=== PATIENT | male | born 1950 | race Caucasian/White ===

== ENCOUNTER 2018-12-04 23:11 | Inpatient (IN) | payer MEDICAID, OTHER ==
[~2018-12-04] VITALS: Ht 170.2 cm; Wt 88.6 kg
[2018-12-04] MEDS ORDERED: NITROGLYCERIN 50 MG/D5W (PMX) 250 ML ONE (23:15)
[2018-12-04] MEDS ORDERED: ETOMIDATE 20 MG INJ ONE (23:30)
[2018-12-04] MEDS ORDERED: AMIODARONE DRIP IV SCH ×2 (23:45)
[2018-12-04] MEDS ORDERED: SODIUM CHLORIDE 0.9% 500 ML BAG IV* STA (23:45)
[2018-12-04] MEDS ORDERED: PROPOFOL 100 ML IV STA (23:45)
[2018-12-04] MEDS ORDERED: FENTAnyl 50 MCG/ML VIAL IV STA (23:45)
[2018-12-04] MEDS ORDERED: EPINEPHRINE 4 MG in NS 250 ML IV SCH (23:45)
[2018-12-04] MEDS ORDERED: VANCOMYCIN 1 GM (PMX) 250 ML IVPB STA (23:51)
[2018-12-04] MEDS ORDERED: CEFEPIME 2GM/50 ML (PMX) 50 ML IVPB STA (23:51)
[2018-12-04] MEDS ORDERED: NORepinephrine 8MG/250 ML (PMX 250 ML IV STA (23:53)
[2018-12-05] VITALS (31 sets, daily range): BP systolic 79–181; BP diastolic 62–127; PULSE 57–91; RESP 15–30; Ht 170.2 cm; Wt 88.6 kg
[2018-12-05] MEDS ORDERED: INSULIN HUMAN REGULAR 100 UNIT in SOD CHLORIDE 0.9% 99 ML IV SCH ×2
[2018-12-05] MEDS ORDERED: DEXTROSE 50% 50 ML SYRINGE IV PRN ×2
[2018-12-05] MEDS ORDERED: FUROSEMIDE 40 MG INJ IV ONE (00:30)
[2018-12-05] MEDS ORDERED: FENTAnyl (DRIP) 1000 mcg/100mL 100 ML IV SCH (01:00)
[2018-12-05] MEDS: ACCU-CHEK XX SCH ×5 (01:00→04:00)
--- NOTE | 2018-12-05 01:48 | ERD ---
ER Documentation Chief Complaint Chief Complaint bib ra severe distress; 86% sats on Cpap; CP unk time; bilat rales HPI This is a 62-year-old male, who is brought in severe respiratory distress, history was limited secondary to severe acuity of his symptoms. Patient was found outside in the parking lot, complaining of shortness of breath, he was found to be hypoxic, rales were noted in the field, he was given sublingual nitrogen x4, he presented altered, and obtunded. ROS All systems reviewed and are negative except as per history of present illness. Allergies Allergies: Coded Allergies: No Known Allergies (Verified Allergy, Unknown, 12/04/18) Physical Exam Vitals Vital Signs Date Temp Pulse Resp B/P (MAP) Pulse Ox O2 O2 Flow FiO2 Time Delivery Rate 12/05/18 75 20 100 50 01:28 12/05/18 91 18 162/108 100 Mechanical 00:43 (126) Ventilator 12/05/18 118 20 79 100 00:06 12/04/18 97.5 64 37 205/115 23:11 (145) Physical Exam Const: Acutely ill, opens eyes spontaneously, but is unresponsive to voice, appears to be in tripod position, diaphoretic Head: Atraumatic Eyes: Normal Conjunctiva ENT: Normal External Ears, Nose and Mouth. Neck: Full range of motion. No meningismus. Resp: Rales are noted bilaterally Cardio: Tachycardic, no murmur Abd: Soft, non tender, non distended. Normal bowel sounds Skin: No petechiae or rashes Back: No midline or flank tenderness Ext: No cyanosis, or edema Neur: Somnolent Psych: Unable to assess Result Diagram: 12/05/18 0001 Results 24 hrs Laboratory Tests Test 12/04/18 23:35 12/05/18 00:01 12/05/18 00:25 Bedside Glucose 140 mg/dL White Blood Count 14.1 10^3/ul Red Blood Count 6.28 10^6/ul Hemoglobin 18.1 g/dl Hematocrit 60.0 % Mean Corpuscular Volume 95.5 fl Mean Corpuscular Hemoglobin 28.8 pg Mean Corpuscular Hemoglobin Concent 30.2 g/dl Red Cell Distribution Width 14.9 % Platelet Count 172 10^3/UL Mean Platelet Volume 13.8 fl Immature Granulocytes % 0.400 % Neutrophils % % Lymphocytes % % Monocytes % % Eosinophils % % Basophils % % Nucleated Red Blood Cells % 0.0 /100WBC Immature Granulocytes # 0.060 10^3/ul Neutrophils # 10^3/ul Lymphocytes # 10^3/ul Monocytes # 10^3/ul Eosinophils # 10^3/ul Basophils # 10^3/ul Nucleated Red Blood Cells # 10^3/ul Prothrombin Time 12.1 Sec Prothrombin Time Ratio 0.9 INR International Normalized Ratio 0.89 Activated Partial Thromboplast Time 25.5 Sec Ammonia 60 umol/l Free Thyroxine Index Pending Thyroxine (T4) Pending Triiodothyronine (T3) Uptake Pending Salicylates Level < 1.0 mg/dl Acetaminophen Level < 10.0 ug/ml Ethyl Alcohol Level < 10.0 mg/dl Lactic Acid Level 6.8 mmol/L Current Medications Medications Dose Sig/Lennie Start Time Status Last (Trade) Ordered Route PRN Stop Time Admin Dose Reason Admin Epinephrine 250 ml @ TITRATE IV 12/04/18 DC 12/05/18 4 mg/ Sodium 3.75 mls/hr 23:45 12/05/18 00:11 Chloride 01:00 Amiodarone 500 ml @ 0 Q0M IV 12/04/18 12/05/18 HCl 900 mls/hr 23:45 12/05/18 00:00 mg/Dextrose 23:44 Discontinue PROTOCOL 12/05/18 DC Miscellaneous all previ... ONCE XX 00:00 12/05/18 00:01 Information (* Miscellaneous Pharmacy Order) Diagnostic 1 ea Q1H XX 12/05/18 Test (Pha) 00:00 (Accu-Chek) Insulin 100 ml @ 0 PER 12/05/18 Human mls/hr PROTOCOL IV 00:00 Regular 100 unit/ Sodium Chloride Treatment Per 12/05/18 Miscellaneous of protocol XX 00:00 Hypoglycemia: Information 1.BG 51... (* Miscellaneous Pharmacy Order) Dextrose 25 ml Q15M PRN 12/05/18 (D50w IV 00:00 Syringe) .DECREASED GLUCOSE Dextrose 50 ml Q15M PRN 12/05/18 (D50w IV 00:00 Syringe) .DECREASED GLUCOSE Sodium 500 ml ONCE STAT 12/04/18 DC 12/05/18 Chloride IV* 23:45 00:22 (NS) 12/04/18 23:51 Fentanyl 50 mcg ONCE STAT 12/04/18 DC 12/05/18 (Sublimaze) IV 23:45 01:21 12/04/18 23:51 Propofol 100 ml @ ONCE STAT 12/04/18 12/05/18 2.25 mls/hr IV 23:45 01:29 12/18/18 21:04 Cefepime HCl 50 ml @ ONCE STAT 12/04/18 DC 12/05/18 100 mls/hr IVPB 23:51 12/05/18 01:20 00:20 Vancomycin 250 ml @ ONCE STAT 12/04/18 HCl 125 mls/hr IVPB 23:51 12/05/18 01:50 250 ml @ ONCE STAT 12/04/18 Norepinephrin 7.5 mls/hr IV 23:53 12/06/18 e 09:12 Furosemide 40 mg ONCE ONCE 12/05/18 DC 12/05/18 (Lasix) IV 00:30 12/05/18 00:17 00:31 Fentanyl 100 ml @ TITRATE IV 12/05/18 12/05/18 2.5 mls/hr 01:00 01:19 Procedures/MDM This is a 62-year-old male, brought in by EMS, with limited history but my clinical impression initially was that the patient appeared to be in fulminant CHF, appearing severely hypertensive and with signs of volume overload. Nitroglycerin GTT was started immediately, however given that the patient's mental status, had been severely declined on arrival and was not tolerating BiPAP, I made the decision to intubate the patient. Patient subsequently lost pulses, and CPR was initiated per protocol. CPR lasted 11 minutes, and Ross was achieved, subsequently patient was placed on hypothermia protocol, broad- spectrum antibiotics were initiated as well. Patient will be aggressively diuresed, with pressor support as needed. I did speak briefly with interventional cardiology, and cardiology did not feel the patient was a candidate for catheterization. Critical Care Time: 35 minutes Treatments/Evaluations: Close monitoring and treatment of unstable vital signs, cardiorespiratory, and neurologic status, while maintaining tight balance of fluid, respiratory, and cardiac interventions. This time includes discussing the case with the patient and the patient's family. This time does not include all procedures stated elsewhere in this record. This time also includes reviewing old records, labs and radiological studies. This time includes examining and re- examining the patient. Additionally, this time also includes arranging care with admitting and consulting physicians. EKG: Rate/Rhythm: Normal Sinus Rhythm QRS, ST, T-waves: Right bundle branch block. No changes consistent w/ acute ischemia Impression: No evidence of ischemia or arrhythmia Repeat EKG: Rate/Rhythm: Normal Sinus Rhythm QRS, ST, T-waves: Right bundle branch block no changes consistent w/ acute ischemia Impression: No evidence of ischemia or arrhythmia Accepting Care Team: Current data and ongoing care discussed. Primary: Bonnie Consulting: None Outstanding Data: none Departure Diagnosis: Primary Impression: Shortness of breath Additional Impressions: Cardiac arrest Heart failure Heart failure type: unspecified Heart failure chronicity: unspecified Qualified Codes: I50.9 - Heart failure, unspecified NICHOLE HODGE MD Dec 05, 2018 01:47
[2018-12-05] MEDS ORDERED: ONDANSETRON 4 MG INJ IV PRN (02:00)
[2018-12-05] MEDS ORDERED: IPRATROPIUM (HFA) 12.9 GM INHALER INH PRN (02:00)
[2018-12-05] MEDS ORDERED: ACETAMINOPHEN 650 MG SUPP PR PRN (02:00)
[2018-12-05] MEDS ORDERED: ALBUTEROL HFA 8 GM INHALER INH PRN (02:00)
[2018-12-05] MEDS ORDERED: PROPOFOL 100 ML IV SCH (02:00)
[2018-12-05] MEDS: PANTOPRAZOLE 40 MG INJ IV SCH (05:52)
--- NOTE | 2018-12-05 06:44 | HP ---
Date/Time of Note Date/Time of Note DATE: 12/05/18 TIME: 06:35 Assessment/Plan VTE Prophylaxis Pharmacological prophylaxis: heparin Lines/Catheters IV Catheter Type (from Nrsg): Central Line Central line still needed: Yes Urinary Cath still in place: Yes Reason Cath still needed: terminal illness/intractable pain Assessment/Plan Assessment/Plan 62-year-old male with unknown medical history who was found down in the parking lot with severe shortness of breath, brought to ER on a CPAP, intubated in the ER, had cardiac arrest shortly after arrival to ER, status post CPR/ACLS with RO SC, admitted to ICU, patient woke up shortly after admission to ICU and started following simple commands, plan for hypothermia protocol aborted PLAN -Attempt CPAP trial if remains calm -Pulmonary to see in a.m. and decide about extubation -Obtain 2D echo -IV antibiotic -Lasix -Check ABG -Monitor kidney function closely. Obtain renal ultrasound and nephrology consult as needed -Gather more information once extubated Result Diagram: 12/05/18 0445 12/05/18 0445 Results 24hrs Laboratory Tests Test 12/04/18 23:35 12/04/18 23:45 12/04/18 23:59 12/05/18 00:01 Bedside Glucose 140 Blood Gas Blood arterial Specimen Source Arterial Blood 12/05/2018 1:10:35 Date Drawn AM Arterial Blood pH 7.242 *L (Temp corrected) Arterial Blood 56.0 H pCO2 (Temp correct) Arterial Blood 132.6 H pO2 (Temp corrected) Arterial Blood 23.6 HCO3 Arterial Blood -4.9 L Base Excess Arterial Blood 98.2 H Oxygen Saturation Gilberto Test ACCEPTAB Arterial Blood Left Radial Gas Puncture Site Arterial 2.1 Blood Carboxyhemo globin Arterial Blood 0.4 Methemoglobin Blood Gas A-a O2 524.4 H Differential Oxyhemoglobin 95.7 Percent Blood Gas 37.0 Temperature Blood Gas 20.0 Respiration Rate Blood Gas Actual 20 Respiration Rate Blood Gas VENT - AC Modality FiO2 100.0 Blood Gas Tidal 500.0 Volume Blood Gas Low 5.0 PEEP Setting Blood Gas 30.0 Inspiratory Pressure Blood Gas DR. HODGE Critical Value Read Back Blood Gas MR Notified Whom Blood Gas 12/05/2018 1:30:24 Notified Time AM Urine Color LT. YELLOW Urine Clarity CLEAR Urine pH 5.0 Urine Specific 1.020 [place] Urine Ketones NEGATIVE Urine Nitrite NEGATIVE Urine Bilirubin NEGATIVE Urine NEGATIVE Urobilinogen Urine Leukocyte NEGATIVE Esterase Urine Microscopic >50 RBC Urine Microscopic 2-5 WBC Urine Squamous FEW Epithelial Cells Urine Mucus FEW A Urine Hemoglobin 2+ H Urine Glucose 2+ H Urine Total 1+ Protein Urine Opiates Negative Screen Urine Negative Barbiturates Urine Negative Amphetamines Screen Urine Negative Benzodiazepines Screen Urine Cocaine Negative Screen Urine Negative Cannabinoids White Blood Count 14.1 H Red Blood Count 6.28 H Hemoglobin 18.1 H Hematocrit 60.0 H Mean Corpuscular 95.5 Volume Mean Corpuscular 28.8 L Hemoglobin Mean Corpuscular 30.2 L Hemoglobin Concen t Red Cell 14.9 H Distribution Width Platelet Count 172 Mean Platelet 13.8 H Volume Immature 0.400 Granulocytes % Neutrophils % Segmented 38 L Neutrophils % (Manual) Lymphocytes % Lymphocytes % 39 (Manual) Reactive 12 H Lymphocytes % (Manual) Monocytes % Monocytes % 6 (Manual) Eosinophils % Basophils % Basophils % 1 (Manual) Metamyelocytes % 1 H (manual) Myelocytes % 3 H (Manual) Nucleated Red 0.0 Blood Cells % Immature 0.060 H Granulocytes # Neutrophils # Lymphocytes 5.4 H (Manual) Lymphocytes # Reactive 1.6 H Lymphocytes # Monocytes # Monocytes # 0.8 (Manual) Eosinophils # Basophils # Basophils # 0.1 H (Manual) Metamyelocytes # 0.1 H Myelocytes # 0.4 H Nucleated Red Blood Cells # Platelet Estimate NORMAL Giant Platelets 2 H Poikilocytosis 1+ Anisocytosis 1+ Microcytosis 1+ Acanthocytes 1+ Prothrombin Time 12.1 Prothrombin Time 0.9 Ratio INR International 0.89 Normalized Ratio Activated 25.5 Partial Thrombopl ast Time Sodium Level 154 H Potassium Level 4.4 Chloride Level 112 H Carbon Dioxide 22 Level Anion Gap 20 H Blood Urea 23 H Nitrogen Creatinine 1.45 H Est Glomerular 50 L Filtrat Rate mL/min Glucose Level 117 Calcium Level 10.4 H Phosphorus Level 6.8 H Magnesium Level 2.4 Total Bilirubin 0.5 Direct Bilirubin 0.00 Indirect 0.5 Bilirubin Aspartate Amino 29 Transf (AST/SGOT) Alanine 11 L Aminotransferase (ALT/SGPT) Alkaline 120 Phosphatase Ammonia 60 H Troponin I 0.049 Total Protein 9.1 H Albumin 5.0 H Globulin 4.10 H Albumin/Globulin 1.21 Ratio Free Thyroxine 3.28 Index Thyroxine (T4) 10.6 Triiodothyronine 30.9 (T3) Uptake Salicylates Level < 1.0 L Acetaminophen < 10.0 L Level Ethyl Alcohol < 10.0 H Level Test 12/05/18 00:25 12/05/18 02:30 12/05/18 04:40 12/05/18 04:45 Lactic Acid Level 6.8 *H 1.9 Blood Gas Blood arterial Specimen Source Arterial Blood 12/05/2018 2:45:03 Date Drawn AM Arterial Blood pH 7.264 *L (Temp corrected) Arterial Blood 55.9 H pCO2 (Temp correct) Arterial Blood 78.2 L pO2 (Temp corrected) Arterial Blood 24.7 HCO3 Arterial Blood -3.4 L Base Excess Arterial Blood 94.5 L Oxygen Saturation Gilberto Test ACCEPTAB Arterial Blood Left Radial Gas Puncture Site Arterial 2.1 Blood Carboxyhemo globin Arterial Blood 0.3 Methemoglobin Blood Gas A-a O2 215.4 H Differential Oxyhemoglobin 92.2 L Percent Blood Gas 37.0 Temperature Blood Gas 22.0 Respiration Rate Blood Gas Actual 23 Respiration Rate Blood Gas VENT - AC Modality FiO2 50.0 Blood Gas Tidal 500.0 Volume Blood Gas Low 5.0 PEEP Setting Blood Gas 20.0 Insp[address] Pressure Blood Gas DR. HODGE Critical Value Read Back Blood Gas MR Notified Whom Blood Gas 12/05/2018 2:50:52 Notified Time AM White Blood Count 12.9 H Red Blood Count 5.50 Hemoglobin 15.9 Hematocrit 50.2 Mean Corpuscular 91.3 Volume Mean Corpuscular 28.9 L Hemoglobin Mean Corpuscular 31.7 L Hemoglobin Concen t Red Cell 14.9 H Distribution Width Platelet Count 169 Mean Platelet 12.8 H Volume Immature 1.000 H Granulocytes % Neutrophils % 73.1 Lymphocytes % 17.0 Monocytes % 8.2 Eosinophils % 0.3 Basophils % 0.4 Nucleated Red 0.0 Blood Cells % Immature 0.130 H Granulocytes # Neutrophils # 9.4 H Lymphocytes # 2.2 Monocytes # 1.1 H Eosinophils # 0.0 Basophils # 0.1 Nucleated Red 0.0 Blood Cells # Sodium Level 144 Potassium Level 4.4 Chloride Level 111 H Carbon Dioxide 25 Level Anion Gap 8 # Blood Urea 24 H Nitrogen Creatinine 1.49 H Est Glomerular 48 L Filtrat Rate mL/min Glucose Level 132 Calcium Level 9.3 Magnesium Level 3.1 H HPI/ROS Admit Date/Time Admit Date/Time Dec 05, 2018 at 04:05 Hx of Present Illness This is a 62-year-old male with unknown past medical history who was found in the parking lot with severe shortness of breath and brought to the ER. He was placed on CPAP by EMS. Upon arrival to the ER, he was in severe shortness of breath. Shortly after, he went into cardiac arrest with ROSC. Initial ABG with a pH of 7.2 PCO2 of 54. Chest x-ray shows moderate pulmonary vascular congestion. 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 Chest CT shows the following 1. Dense bilateral lower lobe consolidation/atelectasis. 2. Thickened interlobular septa with diffuse mosaic appearance of the lung parenchyma favored to represent pulmonary edema. 3. Cardiomegaly. 4. Cholelithiasis. 5. Multiple bilateral renal cysts measuring up to 5.3 x 6.6 cm on the right s marcus. Shortly after admission to ICU, patient woke up and became agitated. He was following commands. I have placed him on trial of CPAP. Pulmonary to evaluate in a.m. PMH/Family/Social Past Medical History Medical History: other (Unknown) Medications Current Medications Amiodarone HCl 900 mg/Dextrose 500 ml @ 0 mls/hr Q0M IV Last administered on 12/05/18at 00:00; Admin Dose 1 MLS/HR; Start 12/04/18 at 23:45; Stop 12/05/18 at 23:44 Propofol 100 ml @ 2.25 mls/hr ONCE STAT IV Last administered on 12/05/18at 01:29; Admin Dose 2.25 MLS/HR; Start 12/04/18 at 23:45; Stop 12/18/18 at 21:04 Norepinephrine 250 ml @ 7.5 mls/hr ONCE STAT IV Last administered on 12/05/18at 04:19; Admin Dose 9.375 MLS/HR; Start 12/04/18 at 23:53; Stop 12/06/18 at 09:12 Fentanyl 100 ml @ 2.5 mls/hr TITRATE IV Last administered on 12/05/18at 01:19; Admin Dose 2.5 MLS/HR; Start 12/05/18 at 01:00 Ondansetron HCl (Zofran Inj) 4 mg Q6H PRN IV NAUSEA AND/OR VOMITING; Start 12/05/18 at 02:00 Albuterol (Ventolin Hfa) 4 puff Q2H RESP THERAPY PRN INH SHORTNESS OF BREATH; Start 12/05/18 at 02:00 Ipratropium [place] (Atrovent Hfa) 4 puff Q2H RESP THERAPY PRN INH SHORTNESS OF BREATH; Start 12/05/18 at 02:00 Acetaminophen (Tylenol Supp) 650 mg Q4H PRN [place] PAIN LEVEL 1-3 OR FEVER; Start 12/05/18 at 02:00 Pantoprazole (Protonix Iv) 40 mg DAILY@06 IV Last administered on 12/05/18at 05:52; Admin Dose 40 MG; Start 12/05/18 at 06:00 Propofol 100 ml @ 2.25 mls/hr PER PROTOCOL IV ; Start 12/05/18 at 02:00 Coded Allergies: No Known Allergies (Verified Allergy, Unknown, 12/04/18) Past Surgical History Past Surgical Hx: other (Unknown) Family History Significant Family History: other (Unknown) Social History Alcohol Use: other (Unknown) Smoking Status: Unknown if ever smoked Drug Use: other (Unknown) Exam/Review of Systems Vital Signs Vitals Vital Signs Date Temp Pulse Resp B/P (MAP) Pulse Ox O2 O2 Flow FiO2 Time Delivery Rate 12/05/18 61 22 107/79 98 Mechanical 06:15 (88) Ventilator 12/05/18 50 04:31 12/05/18 97.5 04:00 Intake and Output 12/04/18 12/04/18 12/05/18 1515:00 23:00 07:00 IntakeIntake Total 40.125 ml OutputOutput Total 1100 ml BalanceBalance -1059.875 ml Exam Constitutional: other (Intubated, awake and following commands) Head: normocephalic, atraumatic Eyes: EOMI, PERRL Respiratory: diminished breath sounds Cardiovascular: regular rate and rhythm Gastrointestinal: soft Extremities: normal pulses VERONICA JAIMES MD Dec 05, 2018 06:44
[2018-12-05] MEDS ORDERED: VANCOMYCIN IV PER PHARMACY XX SCH (07:00)
[2018-12-05] MEDS ORDERED: FUROSEMIDE 20 MG TAB PO SCH (07:00)
[2018-12-05] MEDS ORDERED: FUROSEMIDE 20 MG INJ IV SCH (07:30)
[2018-12-05] MEDS ORDERED: VANCOMYCIN HCL 1.25 GM in SOD CHLORIDE 0.9% 250 ML IVPB SCH (09:00)
[2018-12-05] MEDS ORDERED: VANCOMYCIN 500 MG (PMX) 100 ML IVPB SCH (09:00)
--- NOTE | 2018-12-05 09:30 | PN ---
Date/Time of Note Date/Time of Note DATE: 12/05/18 TIME: 09:12 Assessment/Plan VTE Prophylaxis Pharmacological prophylaxis: LMWH Lines/Catheters IV Catheter Type (from Nrs): Central Line Central line still needed: Yes Urinary Cath still in place: Yes Reason Cath still needed: other (indicate) Assessment/Plan Hospital Course S: remains intubated but will arouse to stimulation, can follow commands, but cannot communicate yet O GENERAL: Intubated and arousable HEENT: JEAN-PAUL, Intubated, V LUNGS: clear HEART: S1, S2. No murmur, gallops or rubs. ABDOMEN: Soft, non distended, Normoactive bowel sounds. GENITOURINARY: Normal male external genitalia, Hernandez to bedside drainage EXTREMITIES: moves all extremities, no edema NEUROLOGIC: will open eyes, and tries to nod, can squeeze CXR: Pul vasc congestion, bibasilar atelectasis CT : There is bilateral lower lobe consolidation with suggestions of pulmonary edema, cardiomegaly and multiple bilateral renal cysts. Brain: Old right basal ganglia lacunar infarcts air-fluid level maxillary sinus, bilateral peritonsillar calcifications Assessment and plan: 62-year-old male who was found in a parking garage with severe shortness of breath and hypoxia and had to be intubated. Currently managed as a Berhane Wharton in the ICU. Patient had suffered cardiac arrest shortly after arrival in the emergency room. 1. Acute respiratory failure, ventilator dependent 2. Status post cardiac arrest with ROSC 3. Severe bilateral pneumonia 4. Sepsis with lactic acid 5. Hyperammonemia r/o 21 and urine hepatic encephalopathy 6. Hypernatremia : resolved 7. KRYSTAL rule out CKD 8. Prev CVA PLAN: Continue vent support and weaning, pulmonary managing Continue empiric antibiotics Complete ACS r/o Start Tube feeds if patient is not extubated today Oral lactulose f/u echo findings Continue gentle hydration SW to help get more information Further interventions per course Care time >40mins Result Diagram: 12/05/18 0445 12/05/18 0445 Results 24hrs Laboratory Tests Test 12/04/18 23:35 12/04/18 23:45 12/04/18 23:59 12/05/18 00:01 Bedside Glucose 140 Blood Gas Blood arterial Specimen Source Arterial Blood 12/05/2018 1:10:35 Date Drawn AM Arterial Blood pH 7.242 *L (Temp corrected) Arterial Blood 56.0 H pCO2 (Temp correct) Arterial Blood 132.6 H pO2 (Temp corrected) Arterial Blood 23.6 HCO3 Arterial Blood -4.9 L Base Excess Arterial Blood 98.2 H Oxygen Saturation Gilberto Test ACCEPTAB Arterial Blood Left Radial Gas Puncture Site Arterial 2.1 Blood Carboxyhemo globin Arterial Blood 0.4 Methemoglobin Blood Gas A-a O2 524.4 H Differential Oxyhemoglobin 95.7 Percent Blood Gas 37.0 Temperature Blood Gas 20.0 Respiration Rate Blood Gas Actual 20 Respiration Rate Blood Gas VENT - AC Modality FiO2 100.0 Blood Gas Tidal 500.0 Volume Blood Gas Low 5.0 PEEP Setting Blood Gas 30.0 Inspiratory Pressure Blood Gas DR. HODGE Critical Value Read Back Blood Gas MR Notified Whom Blood Gas 12/05/2018 1:30:24 Notified Time AM Urine Color LT. YELLOW Urine Clarity CLEAR Urine pH 5.0 Urine Specific 1.020 [place] Urine Ketones NEGATIVE Urine Nitrite NEGATIVE Urine Bilirubin NEGATIVE Urine NEGATIVE Urobilinogen Urine Leukocyte NEGATIVE Esterase Urine Microscopic >50 RBC Urine Microscopic 2-5 WBC Urine Squamous FEW Epithelial Cells Urine Mucus FEW A Urine Hemoglobin 2+ H Urine Glucose 2+ H Urine Total 1+ Protein Urine Opiates Negative Screen Urine Negative Barbiturates Urine Negative Amphetamines Screen Urine Negative Benzodiazepines Screen Urine Cocaine Negative Screen Urine Negative Cannabinoids White Blood Count 14.1 H Red Blood Count 6.28 H Hemoglobin 18.1 H Hematocrit 60.0 H Mean Corpuscular 95.5 Volume Mean Corpuscular 28.8 L Hemoglobin Mean Corpuscular 30.2 L Hemoglobin Concen t Red Cell 14.9 H Distribution Width Platelet Count 172 Mean Platelet 13.8 H Volume Immature 0.400 Granulocytes % Neutrophils % Segmented 38 L Neutrophils % (Manual) Lymphocytes % Lymphocytes % 39 (Manual) Reactive 12 H Lymphocytes % (Manual) Monocytes % Monocytes % 6 (Manual) Eosinophils % Basophils % Basophils % 1 (Manual) Metamyelocytes % 1 H (manual) Myelocytes % 3 H (Manual) Nucleated Red 0.0 Blood Cells % Immature 0.060 H Granulocytes # Neutrophils # Lymphocytes 5.4 H (Manual) Lymphocytes # Reactive 1.6 H Lymphocytes # Monocytes # Monocytes # 0.8 (Manual) Eosinophils # Basophils # Basophils # 0.1 H (Manual) Metamyelocytes # 0.1 H Myelocytes # 0.4 H Nucleated Red Blood Cells # Platelet Estimate NORMAL Giant Platelets 2 H Poikilocytosis 1+ Anisocytosis 1+ Microcytosis 1+ Acanthocytes 1+ Prothrombin Time 12.1 Prothrombin Time 0.9 Ratio INR International 0.89 Normalized Ratio Activated 25.5 Partial Thrombopl ast Time Sodium Level 154 H Potassium Level 4.4 Chloride Level 112 H Carbon Dioxide 22 Level Anion Gap 20 H Blood Urea 23 H Nitrogen Creatinine 1.45 H Est Glomerular 50 L Filtrat Rate mL/min Glucose Level 117 Calcium Level 10.4 H Phosphorus Level 6.8 H Magnesium Level 2.4 Total Bilirubin 0.5 Direct Bilirubin 0.00 Indirect 0.5 Bilirubin Aspartate Amino 29 Transf (AST/SGOT) Alanine 11 L Aminotransferase (ALT/SGPT) Alkaline 120 Phosphatase Ammonia 60 H Troponin I 0.049 Total Protein 9.1 H Albumin 5.0 H Globulin 4.10 H Albumin/Globulin 1.21 Ratio Free Thyroxine 3.28 Index Thyroxine (T4) 10.6 Triiodothyronine 30.9 (T3) Uptake Salicylates Level < 1.0 L Acetaminophen < 10.0 L Level Ethyl Alcohol < 10.0 H Level Test 12/05/18 00:25 12/05/18 02:30 12/05/18 04:40 12/05/18 04:45 Lactic Acid Level 6.8 *H 1.9 Blood Gas Blood arterial Specimen Source Arterial Blood 12/05/2018 2:45:03 Date Drawn AM Arterial Blood pH 7.264 *L (Temp corrected) Arterial Blood 55.9 H pCO2 (Temp correct) Arterial Blood 78.2 L pO2 (Temp corrected) Arterial Blood 24.7 HCO3 Arterial Blood -3.4 L Base Excess Arterial Blood 94.5 L Oxygen Saturation Gilberto Test ACCEPTAB Arterial Blood Left Radial Gas Puncture Site Arterial 2.1 Blood Carboxyhemo globin Arterial Blood 0.3 Methemoglobin Blood Gas A-a O2 215.4 H Differential Oxyhemoglobin 92.2 L Percent Blood Gas 37.0 Temperature Blood Gas 22.0 Respiration Rate Blood Gas Actual 23 Respiration Rate Blood Gas VENT - AC Modality FiO2 50.0 Blood Gas Tidal 500.0 Volume Blood Gas Low 5.0 PEEP Setting Blood Gas 20.0 Inspiratory Pressure Blood Gas DR. HODGE Critical Value Read Back Blood Gas MR Notified Whom Blood Gas 12/05/2018 2:50:52 Notified Time AM White Blood Count 12.9 H Red Blood Count 5.50 Hemoglobin 15.9 Hematocrit 50.2 Mean Corpuscular 91.3 Volume Mean Corpuscular 28.9 L Hemoglobin Mean Corpuscular 31.7 L Hemoglobin Concen t Red Cell 14.9 H Distribution Width Platelet Count 169 Mean Platelet 12.8 H Volume Immature 1.000 H Granulocytes % Neutrophils % 73.1 Lymphocytes % 17.0 Monocytes % 8.2 Eosinophils % 0.3 Basophils % 0.4 Nucleated Red 0.0 Blood Cells % Immature 0.130 H Granulocytes # Neutrophils # 9.4 H Lymphocytes # 2.2 Monocytes # 1.1 H Eosinophils # 0.0 Basophils # 0.1 Nucleated Red 0.0 Blood Cells # Sodium Level 144 Potassium Level 4.4 Chloride Level 111 H Carbon Dioxide 25 Level Anion Gap 8 # Blood Urea 24 H Nitrogen Creatinine 1.49 H Est Glomerular 48 L Filtrat Rate mL/min Glucose Level 132 Calcium Level 9.3 Magnesium Level 3.1 H Exam/Review of Systems Exam Vitals Vital Signs Date Temp Pulse Resp B/P (MAP) Pulse Ox O2 O2 Flow FiO2 Time Delivery Rate 12/05/18 71 22 99 50 08:00 12/05/18 93/73 (80) Mechanical 07:00 Ventilator 12/05/18 97.5 04:00 Intake and Output 12/04/18 12/04/18 12/05/18 1515:00 23:00 07:00 IntakeIntake Total 40.125 ml OutputOutput Total 1100 ml BalanceBalance -1059.875 ml Results Results 24hrs Laboratory Tests Test 12/04/18 23:35 12/04/18 23:45 12/04/18 23:59 12/05/18 00:01 Bedside Glucose 140 Blood Gas Blood arterial Specimen Source Arterial Blood 12/05/2018 1:10:35 Date Drawn AM Arterial Blood pH 7.242 *L (Temp corrected) Arterial Blood 56.0 H pCO2 (Temp correct) Arterial Blood 132.6 H pO2 (Temp corrected) Arterial Blood 23.6 HCO3 Arterial Blood -4.9 L Base Excess Arterial Blood 98.2 H Oxygen Saturation Gilberto Test ACCEPTAB Arterial Blood Left Radial Gas Puncture Site Arterial 2.1 Blood Carboxyhemo globin Arterial Blood 0.4 Methemoglobin Blood Gas A-a O2 524.4 H Differential Oxyhemoglobin 95.7 Percent Blood Gas 37.0 Temperature Blood Gas 20.0 Respiration Rate Blood Gas Actual 20 Respiration Rate Blood Gas VENT - AC Modality FiO2 100.0 Blood Gas Tidal 500.0 Volume Blood Gas Low 5.0 PEEP Setting Blood Gas 30.0 Inspiratory Pressure Blood Gas DR. HODGE Critical Value Read Back Blood Gas MR Notified Whom Blood Gas 12/05/2018 1:30:24 Notified Time AM Urine Color LT. YELLOW Urine Clarity CLEAR Urine pH 5.0 Urine Specific 1.020 [place] Urine Ketones NEGATIVE Urine Nitrite NEGATIVE Urine Bilirubin NEGATIVE Urine NEGATIVE Urobilinogen Urine Leukocyte NEGATIVE Esterase Urine Microscopic >50 RBC Urine Microscopic 2-5 WBC Urine Squamous FEW Epithelial Cells Urine Mucus FEW A Urine Hemoglobin 2+ H Urine Glucose 2+ H Urine Total 1+ Protein Urine Opiates Negative Screen Urine Negative Barbiturates Urine Negative Amphetamines Screen Urine Negative Benzodiazepines Screen Urine Cocaine Negative Screen Urine Negative Cannabinoids White Blood Count 14.1 H Red Blood Count 6.28 H Hemoglobin 18.1 H Hematocrit 60.0 H Mean Corpuscular 95.5 Volume Mean Corpuscular 28.8 L Hemoglobin Mean Corpuscular 30.2 L Hemoglobin Concen t Red Cell 14.9 H Distribution Width Platelet Count 172 Mean Platelet 13.8 H Volume Immature 0.400 Granulocytes % Neutrophils % Segmented 38 L Neutrophils % (Manual) Lymphocytes % Lymphocytes % 39 (Manual) Reactive 12 H Lymphocytes % (Manual) Monocytes % Monocytes % 6 (Manual) Eosinophils % Basophils % Basophils % 1 (Manual) Metamyelocytes % 1 H (manual) Myelocytes % 3 H (Manual) Nucleated Red 0.0 Blood Cells % Immature 0.060 H Granulocytes # Neutrophils # Lymphocytes 5.4 H (Manual) Lymphocytes # Reactive 1.6 H Lymphocytes # Monocytes # Monocytes # 0.8 (Manual) Eosinophils # Basophils # Basophils # 0.1 H (Manual) Metamyelocytes # 0.1 H Myelocytes # 0.4 H Nucleated Red Blood Cells # Platelet Estimate NORMAL Giant Platelets 2 H Poikilocytosis 1+ Anisocytosis 1+ Microcytosis 1+ Acanthocytes 1+ Prothrombin Time 12.1 Prothrombin Time 0.9 Ratio INR International 0.89 Normalized Ratio Activated 25.5 Partial Thrombopl ast Time Sodium Level 154 H Potassium Level 4.4 Chloride Level 112 H Carbon Dioxide 22 Level Anion Gap 20 H Blood Urea 23 H Nitrogen Creatinine 1.45 H Est Glomerular 50 L Filtrat Rate mL/min Glucose Level 117 Calcium Level 10.4 H Phosphorus Level 6.8 H Magnesium Level 2.4 Total Bilirubin 0.5 Direct Bilirubin 0.00 Indirect 0.5 Bilirubin Aspartate Amino 29 Transf (AST/SGOT) Alanine 11 L Aminotransferase (ALT/SGPT) Alkaline 120 Phosphatase Ammonia 60 H Troponin I 0.049 Total Protein 9.1 H Albumin 5.0 H Globulin 4.10 H Albumin/Globulin 1.21 Ratio Free Thyroxine 3.28 Index Thyroxine (T4) 10.6 Triiodothyronine 30.9 (T3) Uptake Salicylates Level < 1.0 L Acetaminophen < 10.0 L Level Ethyl Alcohol < 10.0 H Level Test 12/05/18 00:25 12/05/18 02:30 12/05/18 04:40 12/05/18 04:45 Lactic Acid Level 6.8 *H 1.9 Blood Gas Blood arterial Specimen Source Arterial Blood 12/05/2018 2:45:03 Date Drawn AM Arterial Blood pH 7.264 *L (Temp corrected) Arterial Blood 55.9 H pCO2 (Temp correct) Arterial Blood 78.2 L pO2 (Temp corrected) Arterial Blood 24.7 HCO3 Arterial Blood -3.4 L Base Excess Arterial Blood 94.5 L Oxygen Saturation Gilberto Test ACCEPTAB Arterial Blood Left Radial Gas Puncture Site Arterial 2.1 Blood Carboxyhemo globin Arterial Blood 0.3 Methemoglobin Blood Gas A-a O2 215.4 H Differential Oxyhemoglobin 92.2 L Percent Blood Gas 37.0 Temperature Blood Gas 22.0 Respiration Rate Blood Gas Actual 23 Respiration Rate Blood Gas VENT - AC Modality FiO2 50.0 Blood Gas Tidal 500.0 Volume Blood Gas Low 5.0 PEEP Setting Blood Gas 20.0 Inspiratory Pressure Blood Gas DR. HODGE Critical Value Read Back Blood Gas MR Notified Whom Blood Gas 12/05/2018 2:50:52 Notified Time AM White Blood Count 12.9 H Red Blood Count 5.50 Hemoglobin 15.9 Hematocrit 50.2 Mean Corpuscular 91.3 Volume Mean Corpuscular 28.9 L Hemoglobin Mean Corpuscular 31.7 L Hemoglobin Concen t Red Cell 14.9 H Distribution Width Platelet Count 169 Mean Platelet 12.8 H Volume Immature 1.000 H Granulocytes % Neutrophils % 73.1 Lymphocytes % 17.0 Monocytes % 8.2 Eosinophils % 0.3 Basophils % 0.4 Nucleated Red 0.0 Blood Cells % Immature 0.130 H Granulocytes # Neutrophils # 9.4 H Lymphocytes # 2.2 Monocytes # 1.1 H Eosinophils # 0.0 Basophils # 0.1 Nucleated Red 0.0 Blood Cells # Sodium Level 144 Potassium Level 4.4 Chloride Level 111 H Carbon Dioxide 25 Level Anion Gap 8 # Blood Urea 24 H Nitrogen Creatinine 1.49 H Est Glomerular 48 L Filtrat Rate mL/min Glucose Level 132 Calcium Level 9.3 Magnesium Level 3.1 H Medications Medication Current Medications Amiodarone HCl 900 mg/Dextrose 500 ml @ 0 mls/hr Q0M IV Last administered on 12/05/18at 00:00; Admin Dose 1 MLS/HR; Start 12/04/18 at 23:45; Stop 12/05/18 at 23:44 Propofol 100 ml @ 2.25 mls/hr ONCE STAT IV Last administered on 12/05/18at 01:29; Admin Dose 2.25 MLS/HR; Start 12/04/18 at 23:45; Stop 12/18/18 at 21:04 Norepinephrine 250 ml @ 7.5 mls/hr ONCE STAT IV Last administered on 12/05/18at 04:19; Admin Dose 9.375 MLS/HR; Start 12/04/18 at 23:53; Stop 12/06/18 at 09:12 Fentanyl 100 ml @ 2.5 mls/hr TITRATE IV Last administered on 12/05/18at 01:19; Admin Dose 2.5 MLS/HR; Start 12/05/18 at 01:00 Ondansetron HCl (Zofran Inj) 4 mg Q6H PRN IV NAUSEA AND/OR VOMITING; Start 12/05/18 at 02:00 Albuterol (Ventolin Hfa) 4 puff Q2H RESP THERAPY PRN INH SHORTNESS OF BREATH; Start 12/05/18 at 02:00 Ipratropium [place] (Atrovent Hfa) 4 puff Q2H RESP THERAPY PRN INH SHORTNESS OF BREATH; Start 12/05/18 at 02:00 Acetaminophen (Tylenol Supp) 650 mg Q4H PRN DC PAIN LEVEL 1-3 OR FEVER; Start 12/05/18 at 02:00 Pantoprazole (Protonix Iv) 40 mg DAILY@06 IV Last administered on 12/05/18at 05:52; Admin Dose 40 MG; Start 12/05/18 at 06:00 Propofol 100 ml @ 2.25 mls/hr PER PROTOCOL IV ; Start 12/05/18 at 02:00 Vancomycin HCl (Vanco Iv Per Pharmacy) VANCOMYCIN PER PHARMACY PER PROTOCOL XX ; Start 12/05/18 at 07:00 Cefepime HCl 50 ml @ 100 mls/hr Q12H IVPB ; Start 12/05/18 at 12:00 Furosemide (Lasix) 20 mg BID DIURETICS IV Last administered on 12/05/18at 09:04; Admin Dose 20 MG; Start 12/05/18 at 07:30 Vancomycin HCl 100 ml @ 100 mls/hr ONCE IVPB ; Start 12/05/18 at 09:00; Stop 12/05/18 at 14:00 Vancomycin HCl 1.25 gm/Sodium Chloride 250 ml @ 83.333 mls/ hr Q24H IVPB ; Start 12/06/18 at 09:00 KENYETTA BRAND Dec 05, 2018 09:22
[2018-12-05] MEDS: SOD CHLORIDE 0.9% 1,000 ML IV SCH (11:05)
[2018-12-05] MEDS: CEFEPIME 1GM/50 ML (PMX) 50 ML IVPB SCH (11:33)
--- NOTE | 2018-12-05 11:50 | CONS ---
DATE OF ADMISSION: 12/05/2018 DATE OF CONSULTATION: REASON FOR CONSULTATION: Ventilator management. Thank you, Dr. Jiames, for this consultation. HISTORY OF PRESENT ILLNESS: This is a 62-year-old gentleman found in the parking lot with severe res piratory distress, brought to the emergency room. Emergently intubated, following which he had cardi opulmonary arrest requiring resuscitation and spontaneous return of circulation. Following return of circulation the patient had no focal deficits. He was brought to the emergency room where here he r emains awake, alert, and oriented on mechanical ventilation requesting removal of endotracheal tube. DIAGNOSTIC DATA: Chest CT shows dense bilateral lower lobe atelectasis and infiltrates, possible pul monary edema. LABORATORY DATA: White count initially 14.1, now 12.9, hemoglobin 15.9, platelets 169. BUN 24, crea tinine 1.49. INR was 0.89. ABG this morning pH 7.42, pCO2 of 48, PaO2 72 on CPAP trials. IMPRESSION AND PLAN: 1. Acute respiratory failure, possibly healthcare-associated pneumonia. 2. Rule out coronary ischemia. 3. Incomplete data. PLAN: 1. CPAP weaning trial and extubation. 2. Echocardiogram and cardiology recommendations. 3. Continue broad-spectrum antibiotics. 4. DVT and GI prophylaxis. Dictated By: CYNTHIA ADDISON MD SV/JENNY Conf#: [id number] DID#: [id number] CC: KENYETTA BRAND MD; CARMELLA JHA MD; VERONICA JAIMES MD;*EndCC*
--- NOTE | 2018-12-05 16:16 | RADRPT ---
Echocardiogram Report Patient Name: JERRY PATTON,[birth year]04/2016Patient ID: [id number] : 09-06-1956 (62y 3m)Study Date: 12/05/2018 8:39:13 AM Gender: MAccession #: [id number] Tech: Benigno Perdue [facility] Location: [address] Ref.Physician: VERONICA JAIMES Height(Cm): BSA: Weight(Kg): Quality: AdequateAccount #: Procedures: Echocardiographic Report: Transthoracic echocardiogram with complete 2D, M-Mode, and doppler examination. Indications: Congestive Heart Failure. Measurements: 2D/M Mode Doppler Measurement Value Normal Range Measurement Value Normal Range LVIDd 2D 7.1 [ 4.2 - 5.8 ] cm AV Peak Brant 1.3 [ 100.0 - 170.0 ] cm/sec LVIDs 2D 6.4 [ 2.5 - 4.0 ] cm AV Peak PG 7.0 [ 2.0 - 9.0 ] mmHg LVPWd 2D 1.4 [ 0.6 - 1.0 ] cm LVOT Peak Brant 0.7 [ 70.0 - 110.0 ] cm/sec IVSd 2D 1.4 [ 0.6 - 1.0 ] cm LVOT Peak PG 2.0 [ 2.0 - 6.0 ] mmHg IVS/LVPW 2D 1.0 ratio MV E Peak Brant 0.7 [ 60.0 - 130.0 ] cm/sec AoR Diam 2D 3.2 [ 2.6 - 3.4 ] cm MV A Peak Brant 0.9 [ 100.0 - 120.0 ] cm/sec LA/Ao 2D 1 ratio MV E/A 0.8 [ 0.8 - 1.5 ] ratio LA Dimen 2D 4.0 [ 3.0 - 4.0 ] cm MV Decel Time 176 [ 104 - 258 ] msec Lat E` Brant 0.0 [ 10.0 - 15.0 ] cm/sec MV E/A 0.8 [ 0.8 - 1.5 ] ratio RA Pressure 10.0 mmHg Findings: Left Ventricle: Severe enlargement of left ventricle cavity. Severe global left ventricular systolic dysfunction. Ejection fraction is visually estimated at 15 %. Tissue Doppler/Mitral Doppler indices are consistent with impaired relaxation (Stage I diastolic dysfunction). Right Ventricle: Normal right ventricular size. Normal right ventricular systolic function. Left Atrium: The left atrium is normal in size. Right Atrium: The right atrium is normal in size. Mitral Valve: Mild mitral leaflet calcification. Mild mitral annular calcification. Mild mitral valve regurgitation. Aortic Valve: No significant aortic stenosis or insufficiency. Aortic cusps appear mildly calcified. Tricuspid Valve: Normal appearance of the tricuspid valve. Unable to obtain RVSP due to minimal presence of tricuspid regurgitation. Pulmonic Valve: Normal pulmonic valve appearance. Pericardium: Normal pericardium with no significant pericardial effusion. Left pleural effusion seen. Aorta: Normal aortic root. IVC: Inferior vena cava without respiratory collapse, however, patient on ventilator. Conclusions: Severe enlargement of left ventricle cavity. Severe global left ventricular systolic dysfunction. Ejection fraction is visually estimated at 15 %. Tissue Doppler/Mitral Doppler indices are consistent with impaired relaxation (Stage I diastolic dysfunction). Mild mitral leaflet calcification. Mild mitral annular calcification. Mild mitral valve regurgitation. No significant aortic stenosis or insufficiency. Aortic cusps appear mildly calcified. Normal appearance of the tricuspid valve. Unable to obtain RVSP due to minimal presence of tricuspid regurgitation. Inferior vena cava without respiratory collapse, however, patient on ventilator. Electronically Signed By: Kasi Chapman 2018-12-05 16:15:31 PDT
--- NOTE | 2018-12-05 16:51 | CONS ---
Assessment/Plan Assessment/Plan Hospital Course (Demo Recall) 1. Status post cardiopulmonary arrest/respiratory arrest failure 2. Congestive heart failure and severe cardiomyopathy 3. Mild abnormal troponin probably related to above versus acute [place] 4. Hypertension 5. Smoker 6. Abnormal EKG 7. Acute renal failure 8. Homelessness 9. Episode of V. tach during hypoxemic episodes Recommendations We will try to optimize his medical therapy including placement of aspirin beta- myron. RAFAEL inhibitor as long as renal function remains stable Diuretics will be adjusted as needed Close monitoring on telemetry Check lipid panel on statin if indicated Importance of compliant with the medication discussed with the patient. Further recommendations after more information is available More than 45 minutes of critical care time was in management treatment is critically ill patient excluding any procedures Thank you for his referral. Continue to follow along with you TARIQ BARRIGA MD [facility] Consultation Date/Type/Reason Admit Date/Time Dec 05, 2018 at 04:05 Date of Consultation: Dec 05, 2018 Type of Consult Cardiology Reason for Consultation + trop Requesting Provider: KENYETTA BRAND Date/Time of Note DATE: 12/05/18 TIME: 16:45 Hx of Present Illness Interventional cardiology consultation note Chief complaint: Shortness of breath Reason for consult: Abnormal troponin History of present illness: Thank you for this referral. History was from the patient discussion with the staff and physicians This is a 68-year-old gentleman with apparently history of cardiac disorder and cardiomyopathy but no medication who was found on the street in respiratory distress. Patient initially treated with CPAP but he fell had to be intubated. Apparently during this time he also went into V. tach as well. Patient since last night that he was intubated has already been extubated and is currently responding appropriately. He complains of mild chest wall tenderness. Shortness of breath has improved. His troponin has been slightly elevated Patient states that about 5 years ago while she was at this hospital he was told that he had a heart attack and had a very weak heart. Is unclear if he had an angiogram or any other cardiac workup done. Old record was reviewed with no record of his previous admission was noted. Apparently he was given some medication but he has not been taking any medication Allergies: No known drug allergies Medications no medication at home Family history: Social history: Patient smokes. He is denies any alcohol use but no further questions. He has been drinking some 1 or 2 drinks on the weekend. He denies any drug abuse to me Past medical history: As above Review of system: Patient denies all others except for above-mentioned Past Medical History Medications Current Medications Amiodarone HCl 900 mg/Dextrose 500 ml @ 0 mls/hr Q0M IV Last administered on 12/05/18at 00:00; Admin Dose 1 MLS/HR; Start 12/04/18 at 23:45; Stop 12/05/18 at 23:44 Propofol 100 ml @ 2.25 mls/hr ONCE STAT IV Last administered on 12/05/18at 01:29; Admin Dose 2.25 MLS/HR; Start 12/04/18 at 23:45; Stop 12/18/18 at 21:04 Norepinephrine 250 ml @ 7.5 mls/hr ONCE STAT IV Last administered on 12/05/18at 04:19; Admin Dose 9.375 MLS/HR; Start 12/04/18 at 23:53; Stop 12/06/18 at 09:12 Fentanyl 100 ml @ 2.5 mls/hr TITRATE IV Last administered on 12/05/18at 01:19; Admin Dose 2.5 MLS/HR; Start 12/05/18 at 01:00 Ondansetron HCl (Zofran Inj) 4 mg Q6H PRN IV NAUSEA AND/OR VOMITING; Start 12/05/18 at 02:00 Albuterol (Ventolin Hfa) 4 puff Q2H RESP THERAPY PRN INH SHORTNESS OF BREATH; Start 12/05/18 at 02:00 Ipratropium Jackson (Atrovent Hfa) 4 puff Q2H RESP THERAPY PRN INH SHORTNESS OF BREATH; Start 12/05/18 at 02:00 Acetaminophen (Tylenol Supp) 650 mg Q4H PRN [place] PAIN LEVEL 1-3 OR FEVER; Start 12/05/18 at 02:00 Pantoprazole (Protonix Iv) 40 mg DAILY@06 IV Last administered on 12/05/18at 05:52; Admin Dose 40 MG; Start 12/05/18 at 06:00 Propofol 100 ml @ 2.25 mls/hr PER PROTOCOL IV ; Start 12/05/18 at 02:00 Vancomycin HCl (Vanco Iv Per Pharmacy) VANCOMYCIN PER PHARMACY PER PROTOCOL XX ; Start 12/05/18 at 07:00 Cefepime HCl 50 ml @ 100 mls/hr Q12H IVPB Last administered on 12/05/18at 11:33; Admin Dose 100 MLS/HR; Start 12/05/18 at 12:00 Vancomycin HCl 1.25 gm/Sodium Chloride 250 ml @ 83.333 mls/ hr Q24H IVPB ; Start 12/06/18 at 09:00 Lactulose (Enulose) 20 gm BID PO ; Start 12/05/18 at 21:00 Sodium Chloride 1,000 ml @ 75 mls/hr [id number] IV Last administered on 12/05/18at 11:05; Admin Dose 75 MLS/HR; Start 12/05/18 at 09:30 Allergies: Coded Allergies: No Known Allergies (Verified Allergy, Unknown, 12/04/18) Past Surgical History Past Surgical Hx: other (Unknown) Social History Alcohol Use: other (Unknown) Smoking Status: Unknown if ever smoked Drug Use: other (Unknown) Exam/Review of Systems Vital Signs Vitals Vital Signs Date Temp Pulse Resp B/P (MAP) Pulse Ox O2 O2 Flow FiO2 Time Delivery Rate 12/05/18 91 20 160/89 Nasal 14:00 (112) Cannula 12/05/18 95 13:00 12/05/18 98.6 12:00 12/05/18 5.0 11:52 12/05/18 50 09:44 Intake and Output 12/04/18 12/04/18 12/05/18 1515:00 23:00 07:00 IntakeIntake Total 51.625 ml OutputOutput Total 1300 ml BalanceBalance -1248.375 ml Exam Exam General: no acute distress HEENT: NC/AT. pupils are equal. round. NECK: NO JVD. no stridor. CV: RRR. systolic murmur; no gallop or rubs. PULM: no wheezing or rhonchi. GI: SOFT, NT, ND, no rebound or guarding Extremity: trace B/L LE edema. no clubbing. neuro: awake and alert, OX3. Psych: calm and pleasant rectal: deferred : normal EKG was personally reviewed showed normal sinus rhythm. Right bundle josé miguel block. QRS width is about [address] in the emergency room shows: . Dense bilateral lower lobe consolidation/atelectasis. 2. Thickened interlobular septa with diffuse mosaic appearance of the lung parenchyma favored to represent pulmonary edema. 3. Cardiomegaly. 4. Cholelithiasis. 5. Multiple bilateral renal cysts measuring up to 5.3 x 6.6 cm on the right side. Echocardiogram done 12/05/2018 which was personally reviewed shows: Severe enlargement of left ventricle cavity. Severe global left ventricular s ystolic dysfunction. Ejection fraction is visually estimated at 15 %. Tissue Doppler/Mitral Doppler indices are consistent with impaired relaxation (Stage I diastolic dysfunction). Mild mitral leaflet calcification. Mild mitral annular calcification. Mild mitral valve regurgitation. No significant aortic stenosis or insufficiency. Aortic cusps appear mildly calcified. Normal appearance of the tricuspid valve. Unable to obtain RVSP due to minimal presence of tricuspid regurgitation. Inferior vena cava without respiratory collapse, however, patient on ventilator. Labs Result Diagram: 12/05/18 0445 12/05/18 0445 Results 24hrs Laboratory Tests Test 12/04/18 23:35 12/04/18 23:45 12/04/18 23:59 12/05/18 00:01 Bedside Glucose 140 Blood Gas Blood arterial Specimen Source Arterial Blood 12/05/2018 1:10:35 Date Drawn AM Arterial Blood pH 7.242 *L (Temp corrected) Arterial Blood 56.0 H pCO2 (Temp correct) Arterial Blood 132.6 H pO2 (Temp corrected) Arterial Blood 23.6 HCO3 Arterial Blood -4.9 L Base Excess Arterial Blood 98.2 H Oxygen Saturation Gilberto Test ACCEPTAB Arterial Blood Left Radial Gas Puncture Site Arterial 2.1 Blood Carboxyhemo globin Arterial Blood 0.4 Methemoglobin Blood Gas A-a O2 524.4 H Differential Oxyhemoglobin 95.7 Percent Blood Gas 37.0 Temperature Blood Gas 20.0 Respiration Rate Blood Gas Actual 20 Respiration Rate Blood Gas VENT - AC Modality FiO2 100.0 Blood Gas Tidal 500.0 Volume Blood Gas Low 5.0 PEEP Setting Blood Gas 30.0 Insp[address] Pressure Blood Gas DR. HODGE Critical Value Read Back Blood Gas MR Notified Whom Blood Gas 12/05/2018 1:30:24 Notified Time AM Urine Color LT. YELLOW Urine Clarity CLEAR Urine pH 5.0 Urine Specific 1.020 [place] Urine Ketones NEGATIVE Urine Nitrite NEGATIVE Urine Bilirubin NEGATIVE Urine NEGATIVE Urobilinogen Urine Leukocyte NEGATIVE Esterase Urine Microscopic >50 RBC Urine Microscopic 2-5 WBC Urine Squamous FEW Epithelial Cells Urine Mucus FEW A Urine Hemoglobin 2+ H Urine Glucose 2+ H Urine Total 1+ Protein Urine Opiates Negative Screen Urine Negative Barbiturates Urine Negative Amphetamines Screen Urine Negative Benzodiazepines Screen Urine Cocaine Negative Screen Urine Negative Cannabinoids White Blood Count 14.1 H Red Blood Count 6.28 H Hemoglobin 18.1 H Hematocrit 60.0 H Mean Corpuscular 95.5 Volume Mean Corpuscular 28.8 L Hemoglobin Mean Corpuscular 30.2 L Hemoglobin Concen t Red Cell 14.9 H Distribution Width Platelet Count 172 Mean Platelet 13.8 H Volume Immature 0.400 Granulocytes % Neutrophils % Segmented 38 L Neutrophils % (Manual) Lymphocytes % Lymphocytes % 39 (Manual) Reactive 12 H Lymphocytes % (Manual) Monocytes % Monocytes % 6 (Manual) Eosinophils % Basophils % Basophils % 1 (Manual) Metamyelocytes % 1 H (manual) Myelocytes % 3 H (Manual) Nucleated Red 0.0 Blood Cells % Immature 0.060 H Granulocytes # Neutrophils # Lymphocytes 5.4 H (Manual) Lymphocytes # Reactive 1.6 H Lymphocytes # Monocytes # Monocytes # 0.8 (Manual) Eosinophils # Basophils # Basophils # 0.1 H (Manual) Metamyelocytes # 0.1 H Myelocytes # 0.4 H Nucleated Red Blood Cells # Platelet Estimate NORMAL Giant Platelets 2 H Poikilocytosis 1+ Anisocytosis 1+ Microcytosis 1+ Acanthocytes 1+ Prothrombin Time 12.1 Prothrombin Time 0.9 Ratio INR International 0.89 Normalized Ratio Activated 25.5 Partial Thrombopl ast Time Sodium Level 154 H Potassium Level 4.4 Chloride Level 112 H Carbon Dioxide 22 Level Anion Gap 20 H Blood Urea 23 H Nitrogen Creatinine 1.45 H Est Glomerular 50 L Filtrat Rate mL/min Glucose Level 117 Calcium Level 10.4 H Phosphorus Level 6.8 H Magnesium Level 2.4 Total Bilirubin 0.5 Direct Bilirubin 0.00 Indirect 0.5 Bilirubin Aspartate Amino 29 Transf (AST/SGOT) Alanine 11 L Aminotransferase (ALT/SGPT) Alkaline 120 Phosphatase Ammonia 60 H Troponin I 0.049 Total Protein 9.1 H Albumin 5.0 H Globulin 4.10 H Albumin/Globulin 1.21 Ratio Free Thyroxine 3.28 Index Thyroxine (T4) 10.6 Triiodothyronine 30.9 (T3) Uptake Salicylates Level < 1.0 L Acetaminophen < 10.0 L Level Ethyl Alcohol < 10.0 H Level Test 4/1/19 00:25 12/05/18 02:30 12/05/18 04:40 12/05/18 04:45 Lactic Acid Level 6.8 *H 1.9 Blood Gas Blood arterial Specimen Source Arterial Blood 12/05/2018 2:45:03 Date Drawn AM Arterial Blood pH 7.264 *L (Temp corrected) Arterial Blood 55.9 H pCO2 (Temp correct) Arterial Blood 78.2 L pO2 (Temp corrected) Arterial Blood 24.7 HCO3 Arterial Blood -3.4 L Base Excess Arterial Blood 94.5 L Oxygen Saturation Gilberto Test ACCEPTAB Arterial Blood Left Radial Gas Puncture Site Arterial 2.1 Blood Carboxyhemo globin Arterial Blood 0.3 Methemoglobin Blood Gas A-a O2 215.4 H Differential Oxyhemoglobin 92.2 L Percent Blood Gas 37.0 Temperature Blood Gas 22.0 Respiration Rate Blood Gas Actual 23 Respiration Rate Blood Gas VENT - AC Modality FiO2 50.0 Blood Gas Tidal 500.0 Volume Blood Gas Low 5.0 PEEP Setting Blood Gas 20.0 Insp[address] Pressure Blood Gas DR. HODGE Critical Value Read Back Blood Gas MR Notified Whom Blood Gas 12/05/2018 2:50:52 Notified Time AM White Blood Count 12.9 H Red Blood Count 5.50 Hemoglobin 15.9 Hematocrit 50.2 Mean Corpuscular 91.3 Volume Mean Corpuscular 28.9 L Hemoglobin Mean Corpuscular 31.7 L Hemoglobin Concen t Red Cell 14.9 H Distribution Width Platelet Count 169 Mean Platelet 12.8 H Volume Immature 1.000 H Granulocytes % Neutrophils % 73.1 Lymphocytes % 17.0 Monocytes % 8.2 Eosinophils % 0.3 Basophils % 0.4 Nucleated Red 0.0 Blood Cells % Immature 0.130 H Granulocytes # Neutrophils # 9.4 H Lymphocytes # 2.2 Monocytes # 1.1 H Eosinophils # 0.0 Basophils # 0.1 Nucleated Red 0.0 Blood Cells # Sodium Level 144 Potassium Level 4.4 Chloride Level 111 H Carbon Dioxide 25 Level Anion Gap 8 # Blood Urea 24 H Nitrogen Creatinine 1.49 H Est Glomerular 48 L Filtrat Rate mL/min Glucose Level 132 Calcium Level 9.3 Magnesium Level 3.1 H Test 12/05/18 10:26 12/05/18 10:45 12/05/18 15:22 Creatine Kinase 152 205 H Creatine Kinase 4.2 3.3 Index Creatinine Kinase 6.44 H 6.85 H MB (Mass) Troponin I 0.500 *H 0.609 *H Blood Gas Blood arterial Specimen Source Arterial Blood 12/05/2018 10:45:52 Date Drawn AM Arterial Blood pH 7.425 (Temp corrected) Arterial Blood 38.0 pCO2 (Temp correct) Arterial Blood 71.9 L pO2 (Temp corrected) Arterial Blood 24.4 HCO3 Arterial Blood 0.3 Base Excess Arterial Blood 95.4 Oxygen Saturation Gilberto Test ACCEPTAB Arterial Blood Left Radial Gas Puncture Site Arterial 1.0 Blood Carboxyhemo globin Arterial Blood 0.4 Methemoglobin Blood Gas A-a O2 241.9 H Differential Oxyhemoglobin 94.1 Percent Blood Gas 37.0 Temperature Blood Gas Actual 31 Respiration Rate Blood Gas VENT - CPAP Modality FiO2 50.0 Blood Gas Low 5.0 PEEP Setting Blood Gas 10 Pressure Support Blood Gas TM Notified Whom Blood Gas 12/05/2018 10:56:24 Notified Time AM Medications Medications Current Medications Amiodarone HCl 900 mg/Dextrose 500 ml @ 0 mls/hr Q0M IV Last administered on 12/05/18at 00:00; Admin Dose 1 MLS/HR; Start 12/04/18 at 23:45; Stop 12/05/18 at 23:44 Propofol 100 ml @ 2.25 mls/hr ONCE STAT IV Last administered on 12/05/18at 01:29; Admin Dose 2.25 MLS/HR; Start 12/04/18 at 23:45; Stop 12/18/18 at 21:04 Norepinephrine 250 ml @ 7.5 mls/hr ONCE STAT IV Last administered on 12/05/18at 04:19; Admin Dose 9.375 MLS/HR; Start 12/04/18 at 23:53; Stop 12/06/18 at 09:12 Fentanyl 100 ml @ 2.5 mls/hr TITRATE IV Last administered on 12/05/18at 01:19; Admin Dose 2.5 MLS/HR; Start 12/05/18 at 01:00 Ondansetron HCl (Zofran Inj) 4 mg Q6H PRN IV NAUSEA AND/OR VOMITING; Start 12/05/18 at 02:00 Albuterol (Ventolin Hfa) 4 puff Q2H RESP THERAPY PRN INH SHORTNESS OF BREATH; Start 12/05/18 at 02:00 Ipratropium Jackson (Atrovent Hfa) 4 puff Q2H RESP THERAPY PRN INH SHORTNESS OF BREATH; Start 12/05/18 at 02:00 Acetaminophen (Tylenol Supp) 650 mg Q4H PRN [place] PAIN LEVEL 1-3 OR FEVER; Start 12/05/18 at 02:00 Pantoprazole (Protonix Iv) 40 mg DAILY@06 IV Last administered on 12/05/18at 05:52; Admin Dose 40 MG; Start 12/05/18 at 06:00 Propofol 100 ml @ 2.25 mls/hr PER PROTOCOL IV ; Start 12/05/18 at 02:00 Vancomycin HCl (Vanco Iv Per Pharmacy) VANCOMYCIN PER PHARMACY PER PROTOCOL XX ; Start 12/05/18 at 07:00 Cefepime HCl 50 ml @ 100 mls/hr Q12H IVPB Last administered on 12/05/18at 11:33; Admin Dose 100 MLS/HR; Start 12/05/18 at 12:00 Vancomycin HCl 1.25 gm/Sodium Chloride 250 ml @ 83.333 mls/ hr Q24H IVPB ; Start 12/06/18 at 09:00 Lactulose (Enulose) 20 gm BID PO ; Start 12/05/18 at 21:00 Sodium Chloride 1,000 ml @ 75 mls/hr [id number] IV Last administered on 12/05/18at 11:05; Admin Dose 75 MLS/HR; Start 12/05/18 at 09:30 TARIQ BARRIGA MD Dec 05, 2018 16:51
[2018-12-05] MEDS: FUROSEMIDE 20 MG INJ IV SCH (17:33)
[2018-12-05] MEDS: ASPIRIN (EC) 81 MG TAB PO SCH (17:33)
[2018-12-05] MEDS: LACTULOSE 30ML CUP PO SCH (20:32)
[2018-12-06] VITALS (10 sets, daily range): BP systolic 123–166; BP diastolic 77–96; PULSE 77–94; RESP 16–22
[2018-12-06] MEDS: CEFEPIME 1GM/50 ML (PMX) 50 ML IVPB SCH ×3 (00:16→23:54)
[2018-12-06] MEDS: SOD CHLORIDE 0.9% 1,000 ML IV SCH (00:19)
[2018-12-06] MEDS: PANTOPRAZOLE 40 MG INJ IV SCH (05:01)
[2018-12-06] MEDS: FUROSEMIDE 20 MG INJ IV SCH ×2 (05:01→17:57)
[2018-12-06] MEDS ORDERED: LISINOPRIL 5 MG TAB PO SCH ×2 (09:00→21:00)
[2018-12-06] MEDS ORDERED: VANCOMYCIN HCL 1.25 GM in SOD CHLORIDE 0.9% 250 ML IVPB SCH (09:00)
[2018-12-06] MEDS: LACTULOSE 30ML CUP PO SCH (09:03)
[2018-12-06] MEDS: ASPIRIN (EC) 81 MG TAB PO SCH (09:03)
--- NOTE | 2018-12-06 16:24 | CONS ---
Consult Date/Type/Reason Admit Date/Time Dec 05, 2018 at 04:05 Initial Consult Date 12/05/18 Requesting Provider: KENYETTA CORRALES Date/Time of Note DATE: 12/06/18 TIME: 16:21 Subjective CARDIOLOGY FOLLOW UP NOTE S: D/W staff and Dr Corrales pt is feeling better but he still has sob. no chest pain or pressure. O; General: Mildly tachypneic HEENT: NC/AT. pupils are equal. round. NECK: + JVD. no stridor. CV: RRR. systolic murmur; no gallop or rubs. PULM: no wheezing + rhonchi. GI: SOFT, NT, ND, no rebound or guarding Extremity:+ B/L LE edema. no clubbing. neuro: awake and alert, OX3. Psych: calm and pleasant rectal: deferred : normal Objective Vitals Vital Signs Date Temp Pulse Resp B/P (MAP) Pulse Ox O2 O2 Flow FiO2 Time Delivery Rate 12/06/18 91 12:04 12/06/18 98.1 20 166/96 94 Room Air 11:21 (119) 12/06/18 21 00:30 12/05/18 2.0 20:00 Intake and Output 12/05/18 12/05/18 12/06/18 1414:59 22:59 06:59 IntakeIntake Total 795.5 ml 900 ml 400 ml OutputOutput Total 1350 ml 400 ml 200 ml BalanceBalance -554.5 ml 500 ml 200 ml Results/Medications Result Diagram: 12/06/18 0511 12/06/18 0511 Results 24 hrs Laboratory Tests Test 12/06/18 04:12 12/06/18 05:11 Phosphorus Level 2.4 #L Magnesium Level 2.1 # White Blood Count 9.8 # Red Blood Count 4.96 Hemoglobin 14.4 Hematocrit 44.7 Mean Corpuscular Volume 90.1 Mean Corpuscular Hemoglobin 29.0 Mean Corpuscular Hemoglobin Concent 32.2 Red Cell Distribution Width 14.9 H Platelet Count 103 #L Mean Platelet Volume 12.8 H Immature Granulocytes % 0.300 Neutrophils % 72.6 Lymphocytes % 19.9 Monocytes % 5.4 Eosinophils % 1.3 Basophils % 0.5 Nucleated Red Blood Cells % 0.0 Immature Granulocytes # 0.030 Neutrophils # 7.1 Lymphocytes # 2.0 Monocytes # 0.5 Eosinophils # 0.1 Basophils # 0.1 Nucleated Red Blood Cells # 0.0 Sodium Level 142 Potassium Level 3.5 Chloride Level 108 Carbon Dioxide Level 26 Anion Gap 8 Blood Urea Nitrogen 27 H Creatinine 1.14 Est Glomerular Filtrat Rate mL/min > 60 Glucose Level 105 Calcium Level 8.6 Ammonia < 9 #L Creatine Kinase 154 Creatine Kinase Index 1.6 Creatinine Kinase MB (Mass) 2.45 H Troponin I 0.281 *H B-Type Natriuretic Peptide 57693 H Triglycerides Level 168 H Cholesterol Level 165 LDL Cholesterol, Calculated 104 HDL Cholesterol 27 L Cholesterol/HDL Ratio 6.1 Thyroid Stimulating Hormone (TSH) 0.226 L Medications Current Medications Ondansetron HCl (Zofran Inj) 4 mg Q6H PRN IV NAUSEA AND/OR VOMITING; Start 12/05/18 at 02:00 Albuterol (Ventolin Hfa) 4 puff Q2H RESP THERAPY PRN INH SHORTNESS OF BREATH; Start 12/05/18 at 02:00 Ipratropium [place] (Atrovent Hfa) 4 puff Q2H RESP THERAPY PRN INH SHORTNESS OF BREATH; Start 12/05/18 at 02:00 Acetaminophen (Tylenol Supp) 650 mg Q4H PRN [place] PAIN LEVEL 1-3 OR FEVER; Start 12/05/18 at 02:00 Vancomycin HCl (Vanco Iv Per Pharmacy) VANCOMYCIN PER PHARMACY PER PROTOCOL XX ; Start 12/05/18 at 07:00 Cefepime HCl 50 ml @ 100 mls/hr Q12H IVPB Last administered on 12/06/18at 12:55; Admin Dose 100 MLS/HR; Start 12/05/18 at 12:00 Lactulose (Enulose) 20 gm BID PO Last administered on 12/06/18at 09:03; Admin Dose 20 GM; Start 12/05/18 at 21:00 Carvedilol (Coreg) 6.25 mg BID PO Last administered on 12/06/18at 09:04; Admin Dose 6.25 MG; Start 12/05/18 at 21:00 Lisinopril (Zestril) 5 mg DAILY PO Last administered on 12/06/18at 09:05; Admin Dose 5 MG; Start 12/06/18 at 09:00 Furosemide (Lasix) 20 mg BID DIURETICS IV Last administered on 12/06/18at 05:01; Admin Dose 20 MG; Start 12/05/18 at 18:00 Aspirin (Halfprin) 81 mg DAILY PO Last administered on 12/06/18at 09:03; Admin Dose 81 MG; Start 12/05/18 at 17:00 Vancomycin/Sodium Chloride 250 ml @ 125 mls/hr Q12H IVPB ; Start 12/07/18 at 00:00 Famotidine (Pepcid) 20 mg BID PO ; Start 12/07/18 at 09:00 Assessment/Plan Hospital Course (Demo Recall) 1. Status post cardiopulmonary arrest/respiratory arrest failure 2. Congestive heart failure and severe cardiomyopathy 3. Mild abnormal troponin probably related to above versus acute [place] 4. Hypertension 5. Smoker 6. Abnormal EKG 7. Acute renal failure 8. Homelessness 9. Episode of V. tach during hypoxemic episodes Recommendations Increase lisinopril. Continue IV Lasix continue with the Coreg Close monitoring on telemetry Importance of compliant with the medication discussed with the patient. I recommended the patient undergo left heart catheter and coronary angioplasty with cutaneous coronary intervention. Teressa davidson discussed with the patient with the assistance of a senior center director. Patient initially agreed and then he said no he does not want it because he will be taking medication afterward. We even offered him to provide him with a few months of free medication but again he told staff and myself that he does not want to undergo the procedure. He thinks this would be too much of a risk. Since he is refusing coronary angiogram we will treat him medically only Thank you for his referral. Continue to follow along with you TARIQ BARRIGA MD [facility] TARIQ BARRIGA MD Dec 06, 2018 16:24
[2018-12-06] MEDS ORDERED: ACETAMINOPHEN 325 MG TAB PO PRN (16:30)
[2018-12-06] MEDS ORDERED: POTASSIUM PHOSPHATE 15 MM in SOD CHLORIDE 0.9% 250 ML IVPB ONE (16:30)
--- NOTE | 2018-12-06 16:40 | PN ---
Date/Time of Note Date/Time of Note DATE: 12/06/18 TIME OF EVALUATION: 10:16 Assessment/Plan VTE Prophylaxis Risk score (from Nsg)>0 risk: 5 SCD applied (from Nsg): Yes Pharmacological prophylaxis: LMWH Lines/Catheters IV Catheter Type (from Nrsg): Central Line Central line still needed: Yes Urinary Cath still in place: No Assessment/Plan Hospital Course S: was successfully extubated yesterday, c/o some chest pain with coughing O General: A&O x3, answering questions appropriately, still mildly SOB HEENT: NC/ AT. PERRL. EOM intact Neck: supple CVS: S1, S2, RRR. no murmurs. tender on palpation ? Lungs: still with mild crackles in lung bases Abd: soft, nontender, +BS Ext: moving all extremities skin: no rashes Echo showed : Severe enlargement of left ventricle cavity. Severe global left ventricular systolic dysfunction. Ejection fraction is visually estimated at 15 %. Tissue Doppler/Mitral Doppler indices are consistent with impaired relaxation (Stage I diastolic dysfunction). Assessment and plan: 62-year-old male who was found in a parking garage with severe shortness of breath and hypoxia and had to be intubated. Was managed as a Berhane Wharton in the ICU. Patient had suffered cardiac arrest shortly after arrival in the emergency room. 1. Acute respiratory failure, : resolved, required short term vent support 2. Status post cardiac arrest with ROSC 3. Congestive heart failure and severe cardiomyopathy EF 15% 4. Severe bilateral pneumonia: likely aspiration related 5. Sepsis with lactic acidosis : improving 6. Hyperammonemia: resolved on lactulose 7. KRYSTAL rule out CKD 8. Prev CVA 9. Chronic Smoker 10. Chest pain, JOSE LUIS ? 11. Dyslipidemia Dispo: Continue current care, cardiology planning for possible angiogram later today Chest pain seems more JOSE LUIS, will give pain meds Continue abx and d/c Vanco for now Continue ASA, BB, statin, ACEi Continue diuresis S/p tobacco cessation counselling, will continue to re-inforce Patient denies heavy alcohol use, will get liver USS and hepatitis profile to eval elevated ammonia levels , consider d/c lactulose and repeat levels Continue all other supportive care Result Diagram: 12/06/18 0511 12/06/18 0511 Results 24hrs Laboratory Tests Test 12/06/18 04:12 12/06/18 05:11 Phosphorus Level 2.4 #L Magnesium Level 2.1 # White Blood Count 9.8 # Red Blood Count 4.96 Hemoglobin 14.4 Hematocrit 44.7 Mean Corpuscular Volume 90.1 Mean Corpuscular Hemoglobin 29.0 Mean Corpuscular Hemoglobin Concent 32.2 Red Cell Distribution Width 14.9 H Platelet Count 103 #L Mean Platelet Volume 12.8 H Immature Granulocytes % 0.300 Neutrophils % 72.6 Lymphocytes % 19.9 Monocytes % 5.4 Eosinophils % 1.3 Basophils % 0.5 Nucleated Red Blood Cells % 0.0 Immature Granulocytes # 0.030 Neutrophils # 7.1 Lymphocytes # 2.0 Monocytes # 0.5 Eosinophils # 0.1 Basophils # 0.1 Nucleated Red Blood Cells # 0.0 Sodium Level 142 Potassium Level 3.5 Chloride Level 108 Carbon Dioxide Level 26 Anion Gap 8 Blood Urea Nitrogen 27 H Creatinine 1.14 Est Glomerular Filtrat Rate mL/min > 60 Glucose Level 105 Calcium Level 8.6 Ammonia < 9 #L Creatine Kinase 154 Creatine Kinase Index 1.6 Creatinine Kinase MB (Mass) 2.45 H Troponin I 0.281 *H B-Type Natriuretic Peptide 71587 H Triglycerides Level 168 H Cholesterol Level 165 LDL Cholesterol, Calculated 104 HDL Cholesterol 27 L Cholesterol/HDL Ratio 6.1 Thyroid Stimulating Hormone (TSH) 0.226 L Exam/Review of Systems Exam Vitals Vital Signs Date Temp Pulse Resp B/P (MAP) Pulse Ox O2 O2 Flow FiO2 Time Delivery Rate 12/06/18 91 12:04 12/06/18 98.1 20 166/96 94 Room Air 11:21 (119) 12/06/18 21 00:30 12/05/18 2.0 20:00 Intake and Output 12/05/18 12/05/18 12/06/18 1515:00 23:00 07:00 IntakeIntake Total 859 ml 900 ml 325 ml OutputOutput Total 1150 ml 400 ml 200 ml BalanceBalance -291 ml 500 ml 125 ml Results Results 24hrs Laboratory Tests Test 12/06/18 04:12 12/06/18 05:11 Phosphorus Level 2.4 #L Magnesium Level 2.1 # White Blood Count 9.8 # Red Blood Count 4.96 Hemoglobin 14.4 Hematocrit 44.7 Mean Corpuscular Volume 90.1 Mean Corpuscular Hemoglobin 29.0 Mean Corpuscular Hemoglobin Concent 32.2 Red Cell Distribution Width 14.9 H Platelet Count 103 #L Mean Platelet Volume 12.8 H Immature Granulocytes % 0.300 Neutrophils % 72.6 Lymphocytes % 19.9 Monocytes % 5.4 Eosinophils % 1.3 Basophils % 0.5 Nucleated Red Blood Cells % 0.0 Immature Granulocytes # 0.030 Neutrophils # 7.1 Lymphocytes # 2.0 Monocytes # 0.5 Eosinophils # 0.1 Basophils # 0.1 Nucleated Red Blood Cells # 0.0 Sodium Level 142 Potassium Level 3.5 Chloride Level 108 Carbon Dioxide Level 26 Anion Gap 8 Blood Urea Nitrogen 27 H Creatinine 1.14 Est Glomerular Filtrat Rate mL/min > 60 Glucose Level 105 Calcium Level 8.6 Ammonia < 9 #L Creatine Kinase 154 Creatine Kinase Index 1.6 Creatinine Kinase MB (Mass) 2.45 H Troponin I 0.281 *H B-Type Natriuretic Peptide 76669 H Triglycerides Level 168 H Cholesterol Level 165 LDL Cholesterol, Calculated 104 HDL Cholesterol 27 L Cholesterol/HDL Ratio 6.1 Thyroid Stimulating Hormone (TSH) 0.226 L Medications Medication Current Medications Ondansetron HCl (Zofran Inj) 4 mg Q6H PRN IV NAUSEA AND/OR VOMITING; Start 12/05/18 at 02:00 Albuterol (Ventolin Hfa) 4 puff Q2H RESP THERAPY PRN INH SHORTNESS OF BREATH; Start 12/05/18 at 02:00 Ipratropium [place] (Atrovent Hfa) 4 puff Q2H RESP THERAPY PRN INH SHORTNESS OF BREATH; Start 12/05/18 at 02:00 Acetaminophen (Tylenol Supp) 650 mg Q4H PRN [place] PAIN LEVEL 1-3 OR FEVER; Start 12/05/18 at 02:00 Vancomycin HCl (Vanco Iv Per Pharmacy) VANCOMYCIN PER PHARMACY PER PROTOCOL XX ; Start 12/05/18 at 07:00 Cefepime HCl 50 ml @ 100 mls/hr Q12H IVPB Last administered on 12/06/18at 12:55; Admin Dose 100 MLS/HR; Start 12/05/18 at 12:00 Lactulose (Enulose) 20 gm BID PO Last administered on 12/06/18at 09:03; Admin Dose 20 GM; Start 12/05/18 at 21:00 Carvedilol (Coreg) 6.25 mg BID PO Last administered on 12/06/18at 09:04; Admin Dose 6.25 MG; Start 12/05/18 at 21:00 Lisinopril (Zestril) 5 mg DAILY PO Last administered on 12/06/18at 09:05; Admin Dose 5 MG; Start 12/06/18 at 09:00 Furosemide (Lasix) 20 mg BID DIURETICS IV Last administered on 12/06/18at 05:01; Admin Dose 20 MG; Start 12/05/18 at 18:00 Aspirin (Halfprin) 81 mg DAILY PO Last administered on 12/06/18at 09:03; Admin Dose 81 MG; Start 12/05/18 at 17:00 Vancomycin/Sodium Chloride 250 ml @ 125 mls/hr Q12H IVPB ; Start 12/07/18 at 00:00 Famotidine (Pepcid) 20 mg BID PO ; Start 12/07/18 at 09:00 KENYETTA BRAND Dec 06, 2018 16:28
[2018-12-06] MEDS: SPIRONOLACTONE 25 MG TAB PO SCH (17:57)
[2018-12-06] MEDS: LISINOPRIL 20 MG TAB PO SCH (20:11)
[2018-12-06] MEDS: HYDROCODONE/APAP (5/325) TAB PO PRN (20:17)
[2018-12-06] MEDS ORDERED: ATORVASTATIN 20 MG TAB PO SCH (21:00)
[2018-12-07] VITALS (9 sets, daily range): BP systolic 135–148; BP diastolic 68–79; PULSE 69–146; RESP 16–18
[2018-12-07] MEDS ORDERED: VANCOMYCIN 750 MG (PMX) 250 ML IVPB SCH
[2018-12-07] MEDS: FUROSEMIDE 20 MG INJ IV SCH ×2 (05:04→17:36)
[2018-12-07] MEDS: HYDROCODONE/APAP (5/325) TAB PO PRN ×2 (05:16→14:20)
--- NOTE | 2018-12-07 08:05 | CONS ---
Consult Date/Type/Reason Admit Date/Time Dec 05, 2018 at 04:05 Initial Consult Date 12/05/18 Type of Consultation: cv Requesting Provider: KENYETTA BRAND Date/Time of Note DATE: 12/07/18 TIME: 08:00 Subjective CARDIOLOGY FOLLOW UP NOTE S: D/W staff tele was reviewed pt is feeling better but he denies sob to me no chest pain or pressure. refused samara angio O; General: no acute distress HEENT: NC/AT. pupils are equal. round. NECK: + JVD. no stridor. CV: RRR. systolic murmur; no gallop or rubs. PULM: no wheezing + rhonchi. GI: SOFT, NT, ND, no rebound or guarding Extremity:+ B/L LE edema. no clubbing. neuro: awake and alert, OX3. Psych: calm and pleasant rectal: deferred : normal Objective Vitals Vital Signs Date Temp Pulse Resp B/P (MAP) Pulse Ox O2 O2 Flow FiO2 Time Delivery Rate 12/07/18 98.5 77 18 142/68 98 Nasal 07:58 (92) Cannula 12/07/18 3.0 03:14 12/06/18 21 00:30 Intake and Output 12/06/18 12/06/18 12/07/18 1515:00 23:00 07:00 IntakeIntake Total 1345 ml OutputOutput Total 1200 ml BalanceBalance 145 ml Results/Medications Result Diagram: 12/07/18 0537 12/07/18 0537 Results 24 hrs Laboratory Tests Test 12/07/18 05:37 White Blood Count 9.3 Red Blood Count 4.99 Hemoglobin 14.7 Hematocrit 45.1 Mean Corpuscular Volume 90.4 Mean Corpuscular Hemoglobin 29.5 Mean Corpuscular Hemoglobin Concent 32.6 Red Cell Distribution Width 14.8 H Platelet Count 98 L Mean Platelet Volume 12.5 H Immature Granulocytes % 0.300 Neutrophils % 67.4 Lymphocytes % 22.0 Monocytes % 7.2 Eosinophils % 2.7 Basophils % 0.4 Nucleated Red Blood Cells % 0.0 Immature Granulocytes # 0.030 Neutrophils # 6.3 Lymphocytes # 2.0 Monocytes # 0.7 Eosinophils # 0.3 Basophils # 0.0 Nucleated Red Blood Cells # 0.0 Sodium Level 142 Potassium Level 4.0 Chloride Level 103 Carbon Dioxide Level 31 Anion Gap 8 Blood Urea Nitrogen 26 H Creatinine 1.16 Est Glomerular Filtrat Rate mL/min > 60 Glucose Level 97 Calcium Level 8.8 Phosphorus Level 2.7 Magnesium Level 1.8 Total Bilirubin 1.3 Direct Bilirubin 0.00 Indirect Bilirubin 1.3 H Aspartate Amino Transf (AST/SGOT) 23 Alanine Aminotransferase (ALT/SGPT) 20 Alkaline Phosphatase 84 B-Type Natriuretic Peptide 8890 H Total Protein 6.9 Albumin 3.7 Triglycerides Level 183 H Cholesterol Level 173 LDL Cholesterol, Calculated 110 HDL Cholesterol 26 L Cholesterol/HDL Ratio 6.6 Hepatitis B Surface Antigen NEGATIVE Hepatitis B Surface Antibody NEGATIVE Hepatitis C Antibody NEGATIVE Medications Current Medications Ondansetron HCl (Zofran Inj) 4 mg Q6H PRN IV NAUSEA AND/OR VOMITING; Start 12/05/18 at 02:00 Albuterol (Ventolin Hfa) 4 puff Q2H RESP THERAPY PRN INH SHORTNESS OF BREATH; Start 12/05/18 at 02:00 Ipratropium [place] (Atrovent Hfa) 4 puff Q2H RESP THERAPY PRN INH SHORTNESS OF BREATH; Start 12/05/18 at 02:00 Acetaminophen (Tylenol Supp) 650 mg Q4H PRN [place] PAIN LEVEL 1-3 OR FEVER; Start 12/05/18 at 02:00 Cefepime HCl 50 ml @ 100 mls/hr Q12H IVPB Last administered on 12/06/18at 23:54; Admin Dose 100 MLS/HR; Start 12/05/18 at 12:00 Carvedilol (Coreg) 6.25 mg BID PO Last administered on 12/06/18at 20:11; Admin Dose 6.25 MG; Start 12/05/18 at 21:00 Furosemide (Lasix) 20 mg BID DIURETICS IV Last administered on 12/07/18at 05:04; Admin Dose 20 MG; Start 12/05/18 at 18:00 Aspirin (Halfprin) 81 mg DAILY PO Last administered on 12/06/18 09:03; Admin Dose 81 MG; Start 12/05/18 at 17:00 Famotidine (Pepcid) 20 mg BID PO ; Start 12/07/18 at 09:00 Acetaminophen (Tylenol Tab) 650 mg Q4H PRN PO MILD PAIN(1-3)OR ELEVATED TEMP Last administered on 4/2/19at 16:33; Admin Dose 650 MG; Start 12/06/18 at 16:30 Spironolactone (Aldactone) 25 mg DAILY PO Last administered on 12/06/18 17:57; Admin Dose 25 MG; Start 12/06/18 at 16:30 Lisinopril (Zestril) 20 mg BID PO Last administered on 12/06/18 20:11; Admin Dose 20 MG; Start 12/06/18 at 21:00 Acetaminophen/ Hydrocodone Bitart ([place] (5/325)) 1 tab Q6H PRN PO MODERATE PAIN LEVEL 4-6 Last administered on 12/07/18 05:16; Admin Dose 1 TAB; Start 12/06/18 at 17:00 Atorvastatin Calcium (Lipitor) 20 mg HS PO Last administered on 12/06/18 20:10; Admin Dose 20 MG; Start 12/06/18 at 21:00 Assessment/Plan Hospital Course (Demo Recall) 1. Status post cardiopulmonary arrest/respiratory arrest failure 2. Congestive heart failure and severe cardiomyopathy 3. Mild abnormal troponin probably related to above versus acute TX 4. Hypertension 5. Smoker 6. Abnormal EKG 7. Acute renal failure 8. Homelessness 9. Episode of V. tach during hypoxemic episodes Recommendations cont lisinopril. Continue Lasix inc Coreg as tolerated aldactone Importance of compliant with the medication discussed with the patient. I have recommended the patient undergo left heart catheter and coronary angioplasty with cutaneous coronary intervention. Risperdal tender discussed with the patient with the assistance of a prototype engineer. Patient initially agreed and then he said no he does not want it because he will be taking medication afterward. We even offered him to provide him with a few months of free medication but again he told staff and myself that he does not want to undergo the procedure. He thinks this would be too much of a risk. Since he is refusing coronary angiogram we will treat him medically only dc planning? Thank you for his referral. Continue to follow along with you TARIQ BARRIGA MD [facility] TARIQ BARRIGA MD Dec 07, 2018 08:05
[2018-12-07] MEDS: ASPIRIN (EC) 81 MG TAB PO SCH (08:44)
[2018-12-07] MEDS: SPIRONOLACTONE 25 MG TAB PO SCH (08:44)
[2018-12-07] MEDS: LISINOPRIL 20 MG TAB PO SCH (08:45)
[2018-12-07] MEDS ORDERED: ENOXAPARIN 40 MG/0.4 ML SYG SC SCH (09:00)
[2018-12-07] MEDS ORDERED: FAMOTIDINE 20 MG TAB PO SCH (09:00)
--- NOTE | 2018-12-07 09:57 | PN ---
Date/Time of Note Date/Time of Note DATE: 12/07/18 TIME: 09:51 Assessment/Plan VTE Prophylaxis Risk score (from Ns)>0 risk: 5 SCD applied (from [facility] [place] No SCD contraindicated: low risk/ambulating Pharmacological prophylaxis: LMWH Lines/Catheters IV [facility] (from [facility]): Central Line Central line still needed: Yes Urinary Cath still in place: No Assessment/Plan Hospital Course S: wants to be discharged, states he doesn't need O2, still refusing any kind of cardiac procedure while understanding the risks O General: A&O x3, answering questions appropriately, no distress HEENT: NC/ AT. PERRL. EOM intact Neck: supple CVS: S1, S2, RRR. no murmurs. tender on palpation ? Lungs: still with mild crackles in lung bases Abd: soft, nontender, +BS Ext: moving all extremities skin: no rashes Echo showed : Severe enlargement of left ventricle cavity. Severe global left ventricular systolic dysfunction. Ejection fraction is visually estimated at 15 %. Tissue Doppler/Mitral Doppler indices are consistent with impaired relaxation (Stage I diastolic dysfunction). Assessment and plan: 62-year-old male who was found in a parking garage with severe shortness of breath and hypoxia and had to be intubated. Was managed as a Berhane Wharton in the ICU. Patient had suffered cardiac arrest shortly after arrival in the emergency room. 1. Acute respiratory failure, : resolved, required short term vent support, currentlyt stable on room air 2. Status post cardiac arrest with ROSC -patient refused angiogram 3. Congestive heart failure and severe cardiomyopathy EF 15% 4. Severe bilateral pneumonia: likely aspiration related 5. Sepsis with lactic acidosis : improving 6. Hyperammonemia: resolved on lactulose 7. KRYSTAL rule out CKD 8. Prev CVA 9. Chronic Smoker 10. Chest pain, JOSE LUIS ? 11. Dyslipidemia Dispo: D/c today if cleared by cardio, see if meds can be provided to patient as he is homeless and will be returning to the streets Continue abx Continue ASA, BB, statin, ACEi Continue diuresis S/p tobacco cessation counselling, will continue to re-inforce Continue all other supportive care Result Diagram: 12/07/18 0537 12/07/18 0537 Results 24hrs Laboratory Tests Test 12/07/18 05:37 White Blood Count 9.3 Red Blood Count 4.99 Hemoglobin 14.7 Hematocrit 45.1 Mean Corpuscular Volume 90.4 Mean Corpuscular Hemoglobin 29.5 Mean Corpuscular Hemoglobin Concent 32.6 Red Cell Distribution Width 14.8 H Platelet Count 98 L Mean Platelet Volume 12.5 H Immature Granulocytes % 0.300 Neutrophils % 67.4 Lymphocytes % 22.0 Monocytes % 7.2 Eosinophils % 2.7 Basophils % 0.4 Nucleated Red Blood Cells % 0.0 Immature Granulocytes # 0.030 Neutrophils # 6.3 Lymphocytes # 2.0 Monocytes # 0.7 Eosinophils # 0.3 Basophils # 0.0 Nucleated Red Blood Cells # 0.0 Sodium Level 142 Potassium Level 4.0 Chloride Level 103 Carbon Dioxide Level 31 Anion Gap 8 Blood Urea Nitrogen 26 H Creatinine 1.16 Est Glomerular Filtrat Rate mL/min > 60 Glucose Level 97 Calcium Level 8.8 Phosphorus Level 2.7 Magnesium Level 1.8 Total Bilirubin 1.3 Direct Bilirubin 0.00 Indirect Bilirubin 1.3 H Aspartate Amino Transf (AST/SGOT) 23 Alanine Aminotransferase (ALT/SGPT) 20 Alkaline Phosphatase 84 B-Type Natriuretic Peptide 8890 H Total Protein 6.9 Albumin 3.7 Triglycerides Level 183 H Cholesterol Level 173 LDL Cholesterol, Calculated 110 HDL Cholesterol 26 L Cholesterol/HDL Ratio 6.6 Hepatitis B Surface Antigen NEGATIVE Hepatitis B Surface Antibody NEGATIVE Hepatitis C Antibody NEGATIVE Exam/Review of Systems Exam Vitals Vital Signs Date Temp Pulse Resp B/P (MAP) Pulse Ox O2 O2 Flow FiO2 Time Delivery Rate 12/07/18 81 08:00 12/07/18 98.5 18 142/68 98 Nasal 07:58 (92) Cannula 12/07/18 3.0 03:14 12/06/18 21 00:30 Intake and Output 12/06/18 12/06/18 12/07/18 1515:00 23:00 07:00 IntakeIntake Total 1345 ml OutputOutput Total 1200 ml BalanceBalance 145 ml Results Results 24hrs Laboratory Tests Test 12/07/18 05:37 White Blood Count 9.3 Red Blood Count 4.99 Hemoglobin 14.7 Hematocrit 45.1 Mean Corpuscular Volume 90.4 Mean Corpuscular Hemoglobin 29.5 Mean Corpuscular Hemoglobin Concent 32.6 Red Cell Distribution Width 14.8 H Platelet Count 98 L Mean Platelet Volume 12.5 H Immature Granulocytes % 0.300 Neutrophils % 67.4 Lymphocytes % 22.0 Monocytes % 7.2 Eosinophils % 2.7 Basophils % 0.4 Nucleated Red Blood Cells % 0.0 Immature Granulocytes # 0.030 Neutrophils # 6.3 Lymphocytes # 2.0 Monocytes # 0.7 Eosinophils # 0.3 Basophils # 0.0 Nucleated Red Blood Cells # 0.0 Sodium Level 142 Potassium Level 4.0 Chloride Level 103 Carbon Dioxide Level 31 Anion Gap 8 Blood Urea Nitrogen 26 H Creatinine 1.16 Est Glomerular Filtrat Rate mL/min > 60 Glucose Level 97 Calcium Level 8.8 Phosphorus Level 2.7 Magnesium Level 1.8 Total Bilirubin 1.3 Direct Bilirubin 0.00 Indirect Bilirubin 1.3 H Aspartate Amino Transf (AST/SGOT) 23 Alanine Aminotransferase (ALT/SGPT) 20 Alkaline Phosphatase 84 B-Type Natriuretic Peptide 8890 H Total Protein 6.9 Albumin 3.7 Triglycerides Level 183 H Cholesterol Level 173 LDL Cholesterol, Calculated 110 HDL Cholesterol 26 L Cholesterol/HDL Ratio 6.6 Hepatitis B Surface Antigen NEGATIVE Hepatitis B Surface Antibody NEGATIVE Hepatitis C Antibody NEGATIVE Medications Medication Current Medications Ondansetron HCl (Zofran Inj) 4 mg Q6H PRN IV NAUSEA AND/OR VOMITING; Start 12/05/18 at 02:00 Albuterol (Ventolin Hfa) 4 puff Q2H RESP THERAPY PRN INH SHORTNESS OF BREATH; Start 12/05/18 at 02:00 Ipratropium [place] (Atrovent Hfa) 4 puff Q2H RESP THERAPY PRN INH SHORTNESS OF BREATH; Start 12/05/18 at 02:00 Acetaminophen (Tylenol Supp) 650 mg Q4H PRN [place] PAIN LEVEL 1-3 OR FEVER; Start 12/05/18 at 02:00 Cefepime HCl 50 ml @ 100 mls/hr Q12H IVPB Last administered on 12/06/18at 23:54; Admin Dose 100 MLS/HR; Start 12/05/18 at 12:00 Furosemide (Lasix) 20 mg BID DIURETICS IV Last administered on 12/07/18at 05:04; Admin Dose 20 MG; Start 12/05/18 at 18:00 Aspirin (Halfprin) 81 mg DAILY PO Last administered on 12/07/18at 08:44; Admin Dose 81 MG; Start 12/05/18 at 17:00 Famotidine (Pepcid) 20 mg BID PO Last administered on 12/07/18 08:44; Admin Dose 20 MG; Start 12/07/18 at 09:00 Acetaminophen (Tylenol Tab) 650 mg Q4H PRN PO MILD PAIN(1-3)OR ELEVATED TEMP Last administered on 12/06/18 16:33; Admin Dose 650 MG; Start 12/06/18 at 16:30 Spironolactone (Aldactone) 25 mg DAILY PO Last administered on 12/07/18 08:44; Admin Dose 25 MG; Start 12/06/18 at 16:30 Lisinopril (Zestril) 20 mg BID PO Last administered on 12/07/18 08:45; Admin Dose 20 MG; Start 12/06/18 at 21:00 Acetaminophen/ Hydrocodone Bitart ([place] (5/325)) 1 tab Q6H PRN PO MODERATE PAIN LEVEL 4-6 Last administered on 12/07/18 05:16; Admin Dose 1 TAB; Start 12/06/18 at 17:00 Atorvastatin Calcium (Lipitor) 20 mg HS PO Last administered on 12/06/18 20:10; Admin Dose 20 MG; Start 12/06/18 at 21:00 Carvedilol (Coreg) 12.5 mg BID PO Last administered on 12/07/18 08:46; Admin Dose 12.5 MG; Start 12/07/18 at 09:00 KENYETTA BRAND Dec 07, 2018 09:57
[2018-12-07] MEDS: CEFEPIME 1GM/50 ML (PMX) 50 ML IVPB SCH (11:49)
--- NOTE | 2018-12-07 12:12 | DS ---
Date/Time of Note Date/Time of Note DATE: 12/07/18 TIME: 12:11 Discharge Summary Admission/Discharge Info Admit Date/Time Dec 05, 2018 at 04:05 Discharge Date/Time Discharge Diagnosis 62-year-old male who was found in a parking garage with severe shortness of sia ath and hypoxia and had to be intubated. Was managed as a Berhane Wharton in the ICU. Patient had suffered cardiac arrest shortly after arrival in the emergency room. 1. Acute respiratory failure, : resolved, required short term vent support 2. Status post cardiac arrest with ROSC -patient refused angiogram 3. Congestive heart failure and severe cardiomyopathy EF 15% 4. Severe bilateral pneumonia: likely aspiration related 5. Sepsis with lactic acidosis : improving 6. Hyperammonemia: resolved on lactulose 7. KRYSTAL rule out CKD 8. Prev CVA 9. Chronic Smoker 10. Chest pain, JOSE LUIS ? 11. Dyslipidemia Patient Condition: Stable Consults Cardiology : Kasi Chapman MD . Procedures Echo showed : Severe enlargement of left ventricle cavity. Severe global left ventricular systolic dysfunction. Ejection fraction is visually estimated at 15 %. Tissue Doppler/Mitral Doppler indices are consistent with impaired relaxation (Stage I diastolic dysfunction). Patient refused Left heart Cath multiple times. . Hospital Course 68-year-old male who was found in a parking garage with severe shortness of breath and hypoxia and had to be intubated and was managed on the ventilator in the ICU for short course. He was successfully extubated, he did undergo cardiac arrest with return of spontaneous circulation after resuscitation and was found to have CHF with severe cardiomyopathy with EF of 15%. He was also found to have bilateral pneumonia likely aspiration pneumonia with sepsis. The patient was offered angiogram in view of his cardiac arrest and severe cardiomyopathy, but he vehemently refused this, he was offered multiple times and he continued to refuse. Based on that cardiology recommended aggressive management medically and outpatient follow-up. Of note is that the patient is homeless and a chronic smoker. He denies alcohol use, he was found to have elevated ammonia levels. Hepatitis screen was negative, liver ultrasound did not suggest cirrhosis. The patient denied heavy alcohol use. He was treated for a short while with lactulose therapy, but this was stopped without incident. At this time the patient is requesting to be discharged stating he has an appointment at the Social Security office tomorrow, he has been stable on room air, I spoke with cardiology who has stated that if the patient continues to refuse intervention we have no choice but to discharge. As patient is homeless, the binder caser without any see if they can get him at least one month supply of his medications and he will continue to get refills at [facility]. The patient also states that that is why he is going to the Social Security office to see if he can apply for Medi-yamilex. At this time patient is fully alert, is aware of possible consequences of refusing cardiac intervention, he states that his had a similar episode happen to him 5 years ago and so he knows what may happen. He understands that he is at risk for sudden , and he tells me everybody dies someday. He denies being depressed, denies suicidal or homicidal ideations, I do not get the sense that the patient is depressed as well. In my opinion he is stable for discharge at this time. His answers are appropriate, he has good insight into his disease, and is able to repeat possible consequences of his decisions. He understands that he may return at any time if his symptoms become concerning, without risk of consequence. He has verbalized understanding Comorbidities were also aggressively managed as per Med records. Patient at this time has been evaluated and examined in detail and is assessed to be in stable condition and ready for discharge. . Home Meds Active Scripts Amoxicillin/Potassium Clav (Amox-Clav 875-125 mg Tablet) 875-125 mg Tab, 1 TAB PO BID, #20 TAB Prov[facility] . 12/07/18 Furosemide* (Lasix*) 40 Mg Tablet, 40 MG PO DAILY for 30 Days, #30 TAB 2 Ref[facility]. 12/07/18 Aspirin Delayed Release (Aspirin Delayed Release) 81 Mg Tablet.dr, 81 MG PO DAILY, #30 TAB 3 [facility] 12/07/18 Spironolactone* (Aldactone*) 25 Mg Tablet, 25 MG PO DAILY, #30 TAB 3 [facility]ills [facility]. 12/07/18 Lisinopril* (Lisinopril*) 20 Mg Tablet, 20 MG PO BID, #60 TAB 3 [facility] 12/07/18 Carvedilol* (Carvedilol*) 12.5 Mg Tablet, 12.5 MG PO BID, #60 TAB 3 Refills Prov:KENYETTA BRAND. 12/07/18 Atorvastatin Calcium (Atorvastatin Calcium) 20 Mg Tablet, 20 MG PO HS, #30 TAB 3 Refills Prov:KENYETTA BRAND. 12/07/18 Primary Care Provider Care Physician No Primary Time spent on discharge: > 30 minutes Pending Labs Laboratory Tests Test 12/07/18 05:37 White Blood Count 9.3 10^3/ul (4.8-10.8) Red Blood Count 4.99 10^6/ul (4.70-6.10) Hemoglobin 14.7 g/dl (14.0-18.0) Hematocrit 45.1 % (42.0-52.0) Mean Corpuscular Volume 90.4 fl (82.0-101.0) Mean Corpuscular Hemoglobin 29.5 pg (29.0-33.0) Mean Corpuscular Hemoglobin Concent 32.6 g/dl (32.0-37.0) Red Cell Distribution Width 14.8 % (11.5-14.5) Platelet Count 98 10^3/UL (140-415) Mean Platelet Volume 12.5 fl (7.4-10.4) Immature Granulocytes % 0.300 % (0.001-0.429) Neutrophils % 67.4 % (39.0-77.0) Lymphocytes % 22.0 % (15.0-51.0) Monocytes % 7.2 % (0.0-11.0) Eosinophils % 2.7 % (0.0-7.0) Basophils % 0.4 % (0.0-2.0) Nucleated Red Blood Cells % 0.0 /100WBC (0.0-0.0) Immature Granulocytes # 0.030 10^3/ul (0.0-0.031) Neutrophils # 6.3 10^3/ul (1.6-7.5) Lymphocytes # 2.0 10^3/ul (0.8-2.9) Monocytes # 0.7 10^3/ul (0.3-0.9) Eosinophils # 0.3 10^3/ul (0.0-0.5) Basophils # 0.0 10^3/ul (0.0-0.1) Nucleated Red Blood Cells # 0.0 10^3/ul (0.0-0.0) Sodium Level 142 mmol/L (135-144) Potassium Level 4.0 mmol/L (3.5-5.1) Chloride Level 103 mmol/L (97-110) Carbon Dioxide Level 31 mmol/L (21-31) Anion Gap 8 (5-13) Blood Urea Nitrogen 26 mg/dl (7-20) Creatinine 1.16 mg/dl (0.61-1.24) Est Glomerular Filtrat Rate mL/min > 60 mL/min (>60) Glucose Level 97 mg/dl (70-220) Calcium Level 8.8 mg/dl (8.4-10.2) Phosphorus Level 2.7 mg/dl (2.5-4.9) Magnesium Level 1.8 mg/dl (1.7-2.5) Total Bilirubin 1.3 mg/dl (0.2-1.3) Direct Bilirubin 0.00 mg/dl (0.00-0.20) Indirect Bilirubin 1.3 mg/dl (0-1.1) Aspartate Amino Transf (AST/SGOT) 23 IU/L (15-46) Alanine Aminotransferase (ALT/SGPT) 20 IU/L (13-69) Alkaline Phosphatase 84 IU/L (42-121) B-Type Natriuretic Peptide 8890 PG/ML (0-125) Total Protein 6.9 g/dl (6.1-8.1) Albumin 3.7 g/dl (3.3-4.9) Triglycerides Level 183 mg/dl (0-149) Cholesterol Level 173 mg/dl (100-200) LDL Cholesterol, Calculated 110 mg/dl HDL Cholesterol 26 mg/dl (30-78) Cholesterol/HDL Ratio 6.6 RATIO Hepatitis B Surface Antigen NEGATIVE (NEGATIVE) Hepatitis B Surface Antibody NEGATIVE (NEGATIVE) Hepatitis C Antibody NEGATIVE (NEGATIVE) KENYETTA BRAND Dec 07, 2018 12:12
[2018-12-07] MEDS ORDERED: CARV12.579 PO (12:14)
[2018-12-07] MEDS ORDERED: AMOX1TAB10 PO (12:14)
[2018-12-07] MEDS ORDERED: FURO-109 PO (12:14)
[2018-12-07] MEDS ORDERED: ATOR20TA65 PO (12:14)
[2018-12-07] MEDS ORDERED: SPIR25TA PO (12:14)
[2018-12-07] MEDS ORDERED: ASPI-1044 PO (12:14)
[2018-12-07] MEDS ORDERED: LISI-471 PO (12:14)
--- NOTE | 2018-12-07 12:16 | PDOCDIS ---
Discharge Instructions DIAGNOSIS Discharge Diagnosis 62-year-old male who was found in a parking garage with severe shortness of breath and hypoxia and had to be intubated. Was managed as a Berhane Wharton in the ICU. Patient had suffered cardiac arrest shortly after arrival in the emergency room. 1. Acute respiratory failure, : resolved, required short term vent support 2. Status post cardiac arrest with ROSC -patient refused angiogram 3. Congestive heart failure and severe cardiomyopathy EF 15% 4. Severe bilateral pneumonia: likely aspiration related 5. Sepsis with lactic acidosis : improving 6. Hyperammonemia: resolved on lactulose 7. KRYSTAL rule out CKD 8. Prev CVA 9. Chronic Smoker 10. Chest pain, JOSE LUIS ? 11. Dyslipidemia CONDITION [id number] Patient Condition: [id number] Stable HOME CARE INSTRUCTIONS: [id number] Diet Instructions: [id number] Low Fat /Cholesterol ACTIVITY: [id number] Activity Restrictions: [id number] Slowly Increase Activity Rest between Activity FOLLOW UP/APPOINTMENTS Follow-up Plan Followup with your primary doctor within the next 1-2 weeks. If you don't have one please let someone know, we can give you resources that may help you pick one. You may call Dr Harry Tan's office. he's accepting new patients Name, Degree: Harry Tan MD Specialty: Internal Medicine Comments: Office Address: [address] [place] [address] Office Office You may also call your insurance company to assign one to you. Review your medication list with your nurse before leaving and if you need new prescriptions please let your nurse know. I may have made changes to your home medications or given you new prescriptions, please let your primary doctor know as well. Stay compliant with your medications and report any side effects to your PCP or pharmacist. Return to the ER if you have any concerns and cannot reach your doctors or call your insurance company, they usually have a nurse that can help you. 1. Siga con barrientos mdico de cabecera en las prximas 1-2 semanas. Si usted no tiene kun por favor Hle saber a alguien, podemos darle recursos que pueden ayudarle a elegir kun. Puede llamar a la oficina del Dr. harry Tan. l est aceptando nuevos pacientes Name, Degree: Harry Tan MD Specialty: Internal Medicine Comments: Office Address: [address] [place] [address] Office Office You may also call your insurance company to assign one to you. 2. Review your medication list with your nurse before leaving and if you need new prescriptions please let your nurse know. 2. Revise barrientos lista de medicamentos con barrientos enfermera antes de salir y si necesita recetas nuevas, por favor Hle saber a barrientos enfermera. 3. I may have made changes to your home medications or given you new prescriptions, please let your primary doctor know as well. 3. puede que haya hecho cambios en aden medicamentos caseros o le haya dado nuevas prescripciones, por favor Hle saber a barrientos mdico de cabecera tambin. 4. Stay compliant with your medications and report any side effects to your PCP or pharmacist. 4. cumpla con aden medicamentos e informe de cualquier efecto secundario a barrientos PCP o farmacutico. 5. Return to the ER if you have any concerns and cannot reach your doctors or call your insurance company, they usually have a nurse that can help you. 5. Regrese a la ER si tiene alguna inquietud y no puede comunicarse con aden doctores o llamar a barrientos compaa de seguros, usualmente tienen cristopher enfermera que puede ayudarlo. KENYETTA BRAND Dec 07, 2018 12:16
[2018-12-07] MEDS ORDERED: DEXTROSE 50% 50 ML SYRINGE ONE (17:00)
[2018-12-07] MEDS ORDERED: CA CHLORIDE 10% 10 ML SYRINGE ONE (17:00)
[2018-12-07] MEDS ORDERED: MAGNESIUM SULFATE 1 GM/100 ML D5W IVPB ONE (17:00)
[2018-12-07] MEDS ORDERED: NA BICARBONATE 8.4% 50 ML SYG ONE (17:00)
[2018-12-07] MEDS ORDERED: AMIODARONE 150 MG INJ ONE (17:00)
[2018-12-07] MEDS ORDERED: EPINEPHrine 0.1 MG/ML SYG ONE (17:00)
== END 2018-12-07 18:40 | disposition home or self-care (01) | DRG 871 ==
LOC: E/R 23:11 → ICU 12-05 04:05 → EDBD 12-05 04:05 → 6WM 12-06 00:06
PROVIDERS: ADMIT Internal Medicine; ATTEND Family Medicine
PROC: 5A1935Z Respiratory Ventilation, Less than 24 Consecutive Hours (ICD-10-PCS; principal; 2018-12-05)
PROC: 0BH17EZ Insertion of Endotracheal Airway into Trachea, Via Natural or Artificial Opening (ICD-10-PCS; 2018-12-05)
PROC: 5A12012 Performance of Cardiac Output, Single, Manual (ICD-10-PCS; 2018-12-05)
DX: A41.9 Sepsis, unspecified organism (principal); J96.01 Acute respiratory failure with hypoxia; I46.9 Cardiac arrest, cause unspecified; J69.0 Pneumonitis due to inhalation of food and vomit; I50.23 Acute on chronic systolic (congestive) heart failure; Z99.11 Dependence on respirator [ventilator] status; E72.20 Disorder of urea cycle metabolism, unspecified; E87.0 Hyperosmolality and hypernatremia; N17.9 Acute kidney failure, unspecified; I47.2 Ventricular tachycardia; I42.9 Cardiomyopathy, unspecified; K72.90 Hepatic failure, unspecified without coma; I11.0 Hypertensive heart disease with heart failure; K80.20 Calculus of gallbladder without cholecystitis without obstruction; E78.5 Hyperlipidemia, unspecified; R07.9 Chest pain, unspecified; F17.200 Nicotine dependence, unspecified, uncomplicated; Z79.82 Long term (current) use of aspirin; Z59.0 Homelessness; Z86.73 Personal history of transient ischemic attack (TIA), and cerebral infarction without residual deficits
CPT/HCPCS: 31500; 36415; 36600; 70450; 71045; 71250; 76705; 76937; 80048; 80053; 80061; 80076; 80307; 81001; 82140; 82550; 82553; 82803; 82962; 83605; 83735; 83880; 84100; 84436; 84443; 84479; 84484; 85025; 85610; 85730; 86706; 86803; 87081; 87340; 92950; 93005; 93306; 94002; 94003; 96365; 96368; 96375; C9113; J0171; J0282; J0692; J1940; J3010; J3370; J3475; J7030; J7040; J7050; J7060